=== PATIENT | female | born 1965 | race American Indian/Alaskan Native ===

== ENCOUNTER 2016-06-05 07:34 | Emergency (ER) | payer BC ==
[2016-06-05 07:46] VITALS: BP 140/87
--- NOTE | 2016-06-05 08:14 | Emergency Department Report ---
HPI - General Chief Complaint: Extremity Injury, Lower Time Seen by Provider: 06/05/16 07:54 - HPI HPI: 50-year-old male who presents with left ankle pain 1 day. Patient states she was walking around a corner and yesterday when she twisted her ankle. Patient states she was fine yesterday and went home and her legs started aching this morning. Patient describes pain as throbbing and aching in nature located to the left foot nonradiating, 4-10 intensity. Patient states pain with putting pressure on her foot. History denies fevers chills/nausea/vomiting/abdominal pain/chest pain or any other problems. ED Past Medical Hx - Past Medical History Hx Hypertension: Yes Hx Heart Attack/AMI: No Hx Congestive Heart Failure: No Hx Diabetes: No Hx Deep Vein Thrombosis: No Hx Pulmonary Embolism: No Hx Liver Disease: No Hx Renal Disease: No Hx Sickle Cell Disease: No Hx Arthritis: No Hx Seizures: No Hx Kidney Stones: No Hx Asthma: No Hx COPD: No Hx Tuberculosis: No Hx Dementia: No Hx HIV: No Additional medical history: Negative cardiac catheterization 2013. "ABNORMAL EKG" - Surgical History Hx Coronary Stent: No Hx Open Heart Surgery: No Hx Pacemaker: No Hx Internal Defibrillator: No Hx Cholecystectomy: No Hx Appendectomy: No Hx Breast Surgery: No Additional Surgical History: partial hysterectomy. nasal surgery. tubal ligation. carpul tunnel bilat. tumor left eardrum removed - Social History Smoking Status: Never Smoker - Medications Home Medications: Home Medications Medication Instructions Recorded Confirmed Last Taken Type Isosorbide Mononitrate 30 mg PO AC 06/24/15 06/24/15 06/24/15 History Nitroglycerin [Nitrostat] 0.4 mg SL Q5M PRN 06/24/15 06/24/15 Unknown History amLODIPine [Norvasc] 5 mg PO DAILY 06/24/15 06/24/15 06/24/15 History ALPRAZolam [Xanax TAB] 1 mg PO BID PRN #60 tablet 06/26/15 Unknown Rx ISOSORBIDE MONOnitrate [Imdur ER] 30 mg PO DAILY #30 tablet 06/26/15 Unknown Rx Metoprolol [Lopressor TAB] 25 mg PO BID #30 tablet 06/26/15 Unknown Rx Ranolazine ER [Ranexa ER] 500 mg PO BID #60 tablet 06/26/15 Unknown Rx amLODIPine [Norvasc] 5 mg PO QDAY #30 tablet 06/26/15 Unknown Rx Cyclobenzaprine [Flexeril 10 MG 10 mg PO TID PRN #10 tablet 06/05/16 Unknown Rx TAB] Ibuprofen [Motrin 800 MG tab] 800 mg PO Q8HR PRN #20 tablet 06/05/16 Unknown Rx ED Review of Systems ROS: Stated complaint: LEFT FOOT TWISTED Other details as noted in HPI Constitutional: denies: chills, fever, weakness Eyes: denies: eye pain, eye discharge, vision change ENT: denies: ear pain, throat pain Respiratory: denies: cough, orthopnea, shortness of breath, wheezing Cardiovascular: denies: chest pain, palpitations Endocrine: no symptoms reported. denies: flushing Gastrointestinal: denies: abdominal pain, nausea, vomiting, diarrhea Genitourinary: denies: urgency, dysuria, discharge Musculoskeletal: arthralgia. denies: back pain, joint swelling Skin: denies: rash, lesions Neurological: denies: headache, weakness, numbness, paresthesias, confusion Psychiatric: denies: anxiety, depression Hematological/Lymphatic: denies: easy bleeding, easy bruising Physical Exam - Physical Exam Vital Signs: Vital Signs 06/05/16 07:43 Temperature 98.5 F Pulse Rate 80 Respiratory 16 Rate Blood Pressure 140/87 O2 Sat by Pulse 96 Oximetry Physical Exam: GENERAL: Alert and oriented x3, no apparent distress, Normal Gait, atraumatic. HEAD: Head is normocephalic and a-traumatic. EYES: Extra ocular muscles are intact. Pupils are equal, round, and reactive to light and accommodation. EARS: symetrical, atraumatic NOSE: Nose symetrical, Nontender,Nares appeared normal. MOUTH:Mouth is well hydrated and without lesions. NECK: Supple. Non edematous, No carotid bruits. No lymphadenopathy or thyromegaly. LUNGS: Symetrical with respiration, No wheezing, no rales or crackles, CTAB. HEART: S1, S2 present, regular rate and rhythm without murmur, no rubs, no gallops. ABDOMEN: No organomegaly was noted,Positive bowel sounds, soft, and non- distended. . Nontender to palpation on all Quadrants, NO CVA tenderness. EXTREMITIES/MUSCULOSKELETAL: No cyanosis, clubbing, rash, lesions or edema. Full ROM bilaterally. LE Pulses 2+ bilaterally. LE 5+ strength bilaterally. Left foot and ankle had no joint swelling or edema. Full range of motion without pain. Mild tenderness to palpation lateral aspect of the ankle. NEUROLOGIC: No focal Deficit, Cranial nerves II through XII are grossly intact. No loss of sensation, No facial droop, PSYCHIATRIC: Mood is congruent with affect, denies suicidal or homicidal ideations. SKIN: Warm and dry, No lesions, No ulceration or induration present. ED Course Vital Signs 06/05/16 07:43 Temperature 98.5 F Pulse Rate 80 Respiratory 16 Rate Blood Pressure 140/87 O2 Sat by Pulse 96 Oximetry ED Medical Decision Making - Medical Decision Making 50-year-old female presents with left ankle sprain uncomplicated. ED course: Normal lower extremity exam. Hence for x-ray. Patient has full range of motion of left foot without any pain. Patient able to apply deep pressure. Discussed the patient will follow-up with her primary care physician. Discussed was therapeutic patient. Critical care attestation.: If time is entered above; I have spent that time in minutes in the direct care of this critically ill patient, excluding procedure time. ED Disposition Clinical Impression: Left ankle sprain Qualifiers: Encounter type: initial encounter Disposition: DISCHARGED TO HOME OR SELFCARE Is pt being admited?: No Does the pt Need Aspirin: No Condition: Stable Instructions: Ankle Sprain (ED), Musculoskeletal Pain (ED), RICE Therapy (ED) Prescriptions: Cyclobenzaprine [Flexeril 10 MG TAB] 10 mg PO TID PRN #10 tablet PRN Reason: Muscle Spasm Ibuprofen [Motrin 800 MG tab] 800 mg PO Q8HR PRN #20 tablet PRN Reason: Pain, Moderate (4-6) Referrals: [facility] [Outside] - 3-5 Days [facility] [Outside] - 3-5 Days [facility] [Outside] - 3-5 Days [facility] [Outside] - 3-5 Days Forms: Work/School Release Form(ED) Time of Disposition: 08:15
== END 2016-06-05 08:37 | disposition home or self-care (01) ==
LOC: ED 07:34
DX: S93.402A Sprain of unspecified ligament of left ankle, initial encounter (principal); I10 Essential (primary) hypertension; X58.XXXA Exposure to other specified factors, initial encounter; Y93.9 Activity, unspecified; Y92.9 Unspecified place or not applicable; Y99.9 Unspecified external cause status
CPT/HCPCS: 99283

== ENCOUNTER 2016-10-21 17:33 | Outpatient (CLI) | payer BC ==
--- NOTE | 2016-10-22 08:09 | Magnetic Resonance Report ---
MRI LUMBAR SPINE WITHOUT CONTRAST HISTORY: Lumbar radiculopathy. TECHNIQUE: axial T1, T2. sagittal T1,T2, STIR. COMPARISON: none. FINDINGS: The conus terminates at L1. No signal abnormality or mass. The cauda equina is within normal limits. No central canal stenosis. Normal height and alignment of the lumbar vertebra. Normal bone marrow signal. No acute fracture or suspicious bone lesion. There is mild diffuse facet arthropathy which is most pronounced at L4-5. There is mild disc desiccation L5-S1. The remaining discs are within normal limits. The paraspinal soft tissues are unremarkable. L1-2: No significant abnormality. L2-3: No significant abnormality. L3-4: No significant abnormality. L4-5: No significant abnormality. L5-S1: Mild disc desiccation is again noted. There is a focal midline annular tear and small to medium central disc protrusion. There is mild effacement of the anterior thecal sac but no mass effect on nerve roots or canal stenosis. Bilateral neural foraminal narrowing is estimated at 25%. IMPRESSION: Mild diffuse facet arthropathy. Mild disc desiccation at L5-S1. There is also a focal midline annular tear and small to medium disc protrusion at this level. No central canal stenosis or high-grade neural foraminal narrowing. Please see above.
== END 2016-10-21 17:34 | disposition home or self-care (01) ==
LOC: MRI 17:33
PROVIDERS: ATTEND Psychiatry & Neurology Neurology
DX: M51.17 Intervertebral disc disorders with radiculopathy, lumbosacral region (principal); M12.88 Other specific arthropathies, not elsewhere classified, other specified site; I20.9 Angina pectoris, unspecified; I10 Essential (primary) hypertension
CPT/HCPCS: 72148

== ENCOUNTER → 2017-07-01 | Outpatient (CLI) | payer BC | LOC: SLR 11:00 | PROVIDERS: ATTEND Internal Medicine | DX: G47.30 Sleep apnea, unspecified (principal); E66.9 Obesity, unspecified; R40.0 Somnolence | CPT/HCPCS: 95810 ==

== ENCOUNTER → 2017-09-03 | Outpatient (CLI) | payer BC | LOC: SLR 11:00 | PROVIDERS: ATTEND Internal Medicine | DX: G47.33 Obstructive sleep apnea (adult) (pediatric) (principal); R40.0 Somnolence | CPT/HCPCS: 95811 ==

== ENCOUNTER 2018-06-26 13:10 | Emergency (ER) | payer BC ==
--- NOTE | 2018-06-26 13:15 | Emergency Department Report ---
Chief Complaint: Dizziness Stated Complaint: D/N HEADACHE/DIARRHEA Time Seen by Provider: 06/26/18 13:13 - HPI History of Present Illness: weak and dizzy since Friday new DM diarrhea rx lopressor norvasc menopausal partial hysterectomy. no cp no sob MSE completed MSE screening note: Focused history and physical exam performed. Due to findings the following was ordered: ED Disposition for MSE Condition: Stable
[2018-06-26 13:53] LABS: Hematocrit 36.6 % (30.3-42.9); Hemoglobin 12.2 gm/dl (10.1-14.3); Mean Corpuscular HGB Conc 33 % (30-34); Mean Corpuscular Volume 86 fl (79-97); Platelet Count 358 K/mm3 (140-440); Red Blood Count 4.27 M/mm3 (3.65-5.03); Red Cell Distribution Width 14.9 % (13.2-15.2)
[2018-06-26 14:11] LABS: Bilirubin,Urine NEG (Negative); Blood,Urine NEG (Negative); Color,Urine Yellow (Yellow); Mucus,Urine FEW /HPF; Protein,Urine <15 mg/dL mg/dL (Negative); Urobilinogen,Urine < 2.0 mg/dL (<2.0)
[2018-06-26 14:21] LABS: Alanine Aminotransferase 10 units/L (7-56); Albumin 4.2 g/dL (3.9-5); BUN/Creatinine Ratio 12; Blood Urea Nitrogen 7 mg/dL (7-17); Calcium 9.3 mg/dL (8.4-10.2); Hemolysis Index 3
[2018-06-26] MEDS ORDERED: ZOFRAN IV ONE (16:26)
[2018-06-26] MEDS ORDERED: NACL 0.9% 1000 ML 1,000 ML IV ONE (16:26)
--- NOTE | 2018-06-26 16:53 | Emergency Department Report ---
ED Dizziness HPI - General Chief Complaint: Dizziness Stated Complaint: D/N HEADACHE/DIARRHEA Time Seen by Provider: 06/26/18 13:13 Source: patient, family Mode of arrival: Ambulatory Limitations: No Limitations - History of Present Illness Initial Comments: This is a 52-year-old female here report that she has dizziness and weakness since last Friday. She says she has been having some upper respiratory symptoms to include cough, runny nose, frontal headache and postnasal drainage and cough is worse at night when she lays down. She reports some nausea without vomiting. Patient reports that she also has IBS and she has been having some diarrhea on and off. Denies any urinary burning but reports frequency and she is a new diabetic since April. Her blood glucose was normal on her labs. Pain is sharp to chest and located to the mid chest which shortness of breath on and off. Patient has been in here in the past for chest pain and shortness of breath and has been admitted. She had stress test and cardiac workup in April 2018 and she says that they just told her that her heart was fast asleep her metoprolol her heart rate is now at 53 and she triaged. She said her heart rate usually runs in the 60s. Patient also said that she had cardiac catheterization sedation 2 years ago and that was normal for similar symptoms. She says she had echocardiogram in April 2018 and that was also normal and this was done at this hospital. Denies any fever or chills. Denies any vaginal bleeding or discharge. Denies any back pain report that she had some abdominal cramping. Throughout the week but none at present. MD Complaint: lightheadedness, other (upper respiratory symptoms) Onset/Timin -: days(s) Timing: intermittent Description: lightheadedness History of Same: Yes History of Trauma: No Severity: moderate Improves With: nothing Worsens With: nothing Associated Symptoms: chest pain (7/10 and intermittent), cough, shortness of breath, weakness, other (intermittent diarrhea.). denies: ataxia, confusion, diaphoresis, fever/chills, loss of appetite, malaise, rash, seizure, syncope - Related Data Previous Rx's Medication Instructions Recorded Last Taken Type amLODIPine [Norvasc] 5 mg PO QDAY #30 tablet 06/26/15 Unknown Rx Azithromycin [Zithromax Z-PHUC] 250 mg PO DAILY 5 Days #1 pkg 06/26/18 Unknown Rx Cetirizine HCl [ZyrTEC] 10 mg PO QAM 14 Days #14 capsule 06/26/18 Unknown Rx Fluticasone [Flonase] 1 spray NS QDAY 14 Days #1 bottle 06/26/18 Unknown Rx Promethazine [Phenergan TAB] 25 mg PO Q6HR PRN #16 tab 06/26/18 Unknown Rx methylPREDNISolone [Medrol Dose 4 mg PO DAILY #1 tab.ds.pk 06/26/18 Unknown Rx Phuc] Allergies Allergy/AdvReac Type Severity Reaction Status Date / Time codeine Allergy Swelling Verified 06/26/18 13:12 iodine Allergy Swelling Verified 06/26/18 13:12 lisinopril Allergy Angioedema Verified 06/26/18 13:12 Sulfa (Sulfonamide Allergy Swelling Verified 06/26/18 13:12 Antibiotics) ED Review of Systems ROS: Stated complaint: D/N HEADACHE/DIARRHEA Other details as noted in HPI Constitutional: weakness. denies: chills, fever ENT: denies: ear pain, throat pain, congestion (fentanyl) Respiratory: cough (exam her), shortness of breath. denies: SOB with exertion, SOB at rest, stridor, wheezing Cardiovascular: chest pain. denies: palpitations, dyspnea on exertion (followed), edema, syncope Gastrointestinal: nausea, diarrhea. denies: abdominal pain, vomiting, constipation, hematemesis, melena, hematochezia Genitourinary: frequency. denies: dysuria, hematuria Musculoskeletal: denies: back pain, joint swelling, arthralgia, myalgia Skin: denies: rash Neurological: headache, other (lightheadedness). denies: weakness, numbness, paresthesias, confusion, abnormal gait, vertigo ED Past Medical Hx - Past Medical History Previous Medical History?: Yes Hx Hypertension: Yes Hx Heart Attack/AMI: No Hx Congestive Heart Failure: No Hx Diabetes: No Hx Deep Vein Thrombosis: No Hx Pulmonary Embolism: No Hx GERD: Yes Hx Liver Disease: No Hx Renal Disease: No Hx Sickle Cell Disease: No Hx Arthritis: No Hx Seizures: No Hx Kidney Stones: No Hx Asthma: No Hx COPD: No Hx Tuberculosis: No Hx Dementia: No Hx HIV: No Additional medical history: Negative cardiac catheterization 2013. "ABNORMAL EKG". sleep apnea - Surgical History Past Surgical History?: Yes Hx Coronary Stent: No Hx Open Heart Surgery: No Hx Pacemaker: No Hx Internal Defibrillator: No Hx Cholecystectomy: No Hx Appendectomy: No Hx Breast Surgery: No Additional Surgical History: partial hysterectomy. nasal surgery. tubal ligation. carpul tunnel bilat. tumor left eardrum removed - Family History Family history: hypertension - Social History Smoking Status: Never Smoker Substance Use Type: None - Medications Home Medications: Home Medications Medication Instructions Recorded Confirmed Last Taken Type amLODIPine [Norvasc] 5 mg PO QDAY #30 tablet 06/26/15 12/18/16 Unknown Rx Azithromycin [Zithromax Z-PHUC] 250 mg PO DAILY 5 Days #1 pkg 06/26/18 Unknown Rx Cetirizine HCl [ZyrTEC] 10 mg PO QAM 14 Days #14 capsule 06/26/18 Unknown Rx Fluticasone [Flonase] 1 spray NS QDAY 14 Days #1 bottle 06/26/18 Unknown Rx Promethazine [Phenergan TAB] 25 mg PO Q6HR PRN #16 tab 06/26/18 Unknown Rx methylPREDNISolone [Medrol Dose 4 mg PO DAILY #1 tab.ds.pk 06/26/18 Unknown Rx Phuc] ED Physical Exam - General Limitations: No Limitations General appearance: alert, in no apparent distress - Head Head exam: Present: atraumatic, normocephalic, normal inspection, other (normal exam) - Eye Eye exam: Present: normal appearance, PERRL, EOMI. Absent: nystagmus Pupils: Present: normal accommodation - ENT ENT exam: Present: normal orophraynx, mucous membranes moist, normal external ear exam, other (bilateral nasal mucosa congested, erythema and clear drainage.). Absent: TM's normal bilaterally (bilateral team congested without erythema) - Neck Neck exam: Present: normal inspection, full ROM, other (no C-spine tenderness). Absent: tenderness, meningismus, lymphadenopathy - Respiratory Respiratory exam: Present: normal lung sounds bilaterally. Absent: respiratory distress, wheezes, rales, rhonchi, stridor, chest wall tenderness, accessory muscle use, decreased breath sounds, prolonged expiratory - Cardiovascular Cardiovascular Exam: Present: normal rhythm, bradycardia, normal heart sounds. Absent: systolic murmur, diastolic murmur - GI/Abdominal GI/Abdominal exam: Present: soft, normal bowel sounds. Absent: distended, tenderness, guarding, rebound, rigid - Extremities Exam Extremities exam: Present: normal inspection, full ROM, normal capillary refill, other (No cce. + 2 pulses in all extremities, no neurovascular compromise). Absent: tenderness, pedal edema, joint swelling, calf tenderness - Back Exam Back exam: Present: normal inspection, full ROM, other (ablated without any difficulties). Absent: tenderness, CVA tenderness (R), CVA tenderness (L), muscle spasm, paraspinal tenderness, vertebral tenderness, rash noted - Neurological Exam Neurological exam: Present: alert, oriented X3, normal gait, reflexes normal, other (no focal deficits). Absent: motor sensory deficit - Psychiatric Psychiatric exam: Present: normal affect, normal mood - Skin Skin exam: Present: warm, dry, intact, normal color. Absent: rash ED Course Vital Signs 06/26/18 06/26/18 13:13 18:20 Temperature 97.6 F Pulse Rate 60 73 Respiratory 20 15 Rate Blood Pressure 146/84 150/88 O2 Sat by Pulse 100 97 Oximetry Guillermina get in to see ready here this emigdio wonderful. - Reevaluation(s) Reevaluation #1: 06/26/18 18:00 Patient given IV fluid normal saline 1 L and Zofran 8 mg IV that she is feeling a lot better. No nausea or headache at present. Reevaluation #2: 06/26/18 18:34 Patient is currently stable and in no acute distress. Plan to send patient home with family ED Medical Decision Making - Lab Data Result diagrams: 06/26/18 13:43 06/26/18 13:43 Lab Results 06/26/18 06/26/18 06/26/18 Range/Units 13:43 13:43 13:43 WBC 11.6 H (4.5-11.0) K/mm3 RBC 4.27 (3.65-5.03) M/mm3 Hgb 12.2 (10.1-14.3) gm/dl Hct 36.6 (30.3-42.9) % MCV 86 (79-97) fl MCH 29 (28-32) pg MCHC 33 (30-34) % RDW 14.9 (13.2-15.2) % Plt Count 358 (140-440) K/mm3 VBG pH 7.333 (7.320-7.420) Sodium 140 (137-145) mmol/L Potassium 3.6 (3.6-5.0) mmol/L Chloride 103.2 (98-107) mmol/L Carbon Dioxide 25 (22-30) mmol/L Anion Gap 15 mmol/L BUN 7 (7-17) mg/dL Creatinine 0.6 L (0.7-1.2) mg/dL Estimated GFR > 60 ml/min BUN/Creatinine Ratio 12 % Glucose 92 (65-100) mg/dL Calcium 9.3 (8.4-10.2) mg/dL Total Bilirubin 0.30 (0.1-1.2) mg/dL AST 11 (5-40) units/L ALT 10 (7-56) units/L Alkaline Phosphatase 67 (35-129) units/L Troponin T (0.00-0.029) ng/mL Total Protein 7.0 (6.3-8.2) g/dL Albumin 4.2 (3.9-5) g/dL Albumin/Globulin Ratio 1.5 % Lipase 76 H (13-60) units/L Urine Color (Yellow) Urine Turbidity (Clear) Urine pH (5.0-7.0) Ur Specific Enders (1.003-1.030) Urine Protein (Negative) mg/dL Urine Glucose (UA) (Negative) mg/dL Urine Ketones (Negative) mg/dL Urine Blood (Negative) Urine Nitrite (Negative) Urine Bilirubin (Negative) Urine Urobilinogen (<2.0) mg/dL Ur Leukocyte Esterase (Negative) Urine WBC (Auto) (0.0-6.0) /HPF Urine RBC (Auto) (0.0-6.0) /HPF U Epithel Cells (Auto) (0-13.0) /HPF Urine Mucus /HPF 06/26/18 06/26/18 Range/Units 13:43 13:52 WBC (4.5-11.0) K/mm3 RBC (3.65-5.03) M/mm3 Hgb (10.1-14.3) gm/dl Hct (30.3-42.9) % MCV (79-97) fl MCH (28-32) pg MCHC (30-34) % RDW (13.2-15.2) % Plt Count (140-440) K/mm3 VBG pH (7.320-7.420) Sodium (137-145) mmol/L Potassium (3.6-5.0) mmol/L Chloride (98-107) mmol/L Carbon Dioxide (22-30) mmol/L Anion Gap mmol/L BUN (7-17) mg/dL Creatinine (0.7-1.2) mg/dL Estimated GFR ml/min BUN/Creatinine Ratio % Glucose (65-100) mg/dL Calcium (8.4-10.2) mg/dL Total Bilirubin (0.1-1.2) mg/dL AST (5-40) units/L ALT (7-56) units/L Alkaline Phosphatase (35-129) units/L Troponin T < 0.010 (0.00-0.029) ng/mL Total Protein (6.3-8.2) g/dL Albumin (3.9-5) g/dL Albumin/Globulin Ratio % Lipase (13-60) units/L Urine Color Yellow (Yellow) Urine Turbidity Clear (Clear) Urine pH 5.0 (5.0-7.0) Ur Specific Enders 1.010 (1.003-1.030) Urine Protein <15 mg/dl (Negative) mg/dL Urine Glucose (UA) Neg (Negative) mg/dL Urine Ketones Neg (Negative) mg/dL Urine Blood Neg (Negative) Urine Nitrite Neg (Negative) Urine Bilirubin Neg (Negative) Urine Urobilinogen < 2.0 (<2.0) mg/dL Ur Leukocyte Esterase Neg (Negative) Urine WBC (Auto) 1.0 (0.0-6.0) /HPF Urine RBC (Auto) 1.0 (0.0-6.0) /HPF U Epithel Cells (Auto) < 1.0 (0-13.0) /HPF Urine Mucus Few /HPF - EKG Data -: EKG Interpreted by Me (attending physician) Rate: bradycardia - EKG Data When compared to previous EKG there are: previous EKG unavailable Interpretation: no acute changes - Radiology Data Radiology results: report reviewed Two-view chest x-ray dictated by radiologist and report reviewed by myself and no evidence of acute cardiopulmonary processes. Please refer to report below Findings [facility] [address] [place] [address] XRay Report Signed Patient: DIEGO MOORE MR#: [id number] : 1965 Acct:[id number] Age/Sex: 52 / F ADM Date: 06/26/18 Loc: ED Attending Dr: Ordering Physician: JUAN SIDDIQUI Date of Service: 06/26/18 Procedure(s): XR chest routine 2V Accession Number(s): [id number] cc: JUAN SIDDIQUI Fluoro Time In Minutes: FINAL REPORT EXAM: XR CHEST ROUTINE 2V HISTORY: cough, fever 1 month TECHNIQUE: PA and lateral views of the chest Comparison: Chest x-ray dated June 24, 2015 FINDINGS: There is no evidence of infiltrate, pneumothorax or pleural fluid collection. The cardiomediastinal silhouette is normal in appearance. The bony structures are unremarkable. IMPRESSION: 1. No evidence of an acute pulmonary process. If further imaging is required, CT chest may be helpful. Transcribed By: ED Dictated By: JESSICA ARCEO MD Electronically Authenticated By: JESSICA ARCEO MD Signed Date/Time: 06/26/181729 DD/ 27 TD/TT: 06/26/181727 - Medical Decision Making 52-year-old patient here with lightheadedness and weakness and also upper respiratory symptoms. Patient was found to have sinusitis and she was given 1 L of normal saline along with Zofran 8 mg IV and is currently feeling better. Discharged home in stable condition with her family to follow up with primary care physician. Vital signs are stable she is afebrile and in no acute distress - Differential Diagnosis ACS, PNA, pleurisy, bronchitis, sinusitis, rhinitis Critical care attestation.: If time is entered above; I have spent that time in minutes in the direct care of this critically ill patient, excluding procedure time. ED Disposition Clinical Impression: Atypical chest pain, URI with cough and congestion, Episodic lightheadedness Sinusitis Qualifiers: Sinusitis location: unspecified location Chronicity: acute Recurrence: not specified as recurrent Qualified Code(s): J01.90 - Acute sinusitis, unspecified Disposition: - TO HOME OR SELFCARE Is pt being admited?: No Does the pt Need Aspirin: No Condition: Stable Instructions: Chest Pain (ED), Sinusitis (ED), Acute Nausea and Vomiting (ED), Lightheadedness (ED), Acute Cough (ED) Additional Instructions: Please take antibiotic as prescribed Follow-up with primary care physician in 3-5 days Take Zyrtec, Flonase and Medrol Dosepak to help to relieve congestion. Take Phenergan for nausea e but please give her operating machine or taking this medication as a causes drowsiness Take Motrin as prescribed for pain but take with food as this can cause irritation to stomach lining If your condition worsens to include difficulty breathing, swallowing, chest pain, nausea and vomiting and fever does not relief with Motrin please return to the emergency room MEGAN. Gargle with warm salt water and this will help to relieve sore throat Please increase her fluid intake to 2-3 L of water daily Flushing nostrils out with nasal saline and this will help to relieve congestion. Prescriptions: Azithromycin [Zithromax Z-PHUC] 250 mg PO DAILY 5 Days #1 pkg Cetirizine HCl [ZyrTEC] 10 mg PO QAM 14 Days #14 capsule Fluticasone [Flonase] 1 spray NS QDAY 14 Days #1 bottle methylPREDNISolone [Medrol Dose Phuc] 4 mg PO DAILY #1 tab.ds.pk Promethazine [Phenergan TAB] 25 mg PO Q6HR PRN #16 tab PRN Reason: Nausea Referrals: Your, primary care doctor [Other] - 06/30/18 [facility] [Provider Group] - 3-5 Days DEB HDALEY MD [Staff Physician] - 06/30/18 (Is the first time that Heidi Paula) Forms: Work/School Release Form(ED)
--- NOTE | 2018-06-26 17:30 | XRay Report ---
FINAL REPORT EXAM: XR CHEST ROUTINE 2V HISTORY: cough, fever 1 month TECHNIQUE: PA and lateral views of the chest Comparison: Chest x-ray dated June 24, 2015 FINDINGS: There is no evidence of infiltrate, pneumothorax or pleural fluid collection. The cardiomediastinal silhouette is normal in appearance. The bony structures are unremarkable. IMPRESSION: 1. No evidence of an acute pulmonary process. If further imaging is required, CT chest may be helpful.
[2018-06-26 18:25] VITALS: BP 150/88
== END 2018-06-26 19:13 | disposition home or self-care (01) ==
LOC: ED 13:10
DX: J01.90 Acute sinusitis, unspecified (principal); J06.9 Acute upper respiratory infection, unspecified; I10 Essential (primary) hypertension; K21.9 Gastro-esophageal reflux disease without esophagitis
CPT/HCPCS: 36415; 71046; 80053; 81001; 82805; 83690; 84484; 85027; 93005; 93010; 96361; 96374; 99284; J2405; J7030

== ENCOUNTER 2018-07-08 08:19 | Outpatient (CLI) | payer BC ==
[2018-07-08 08:31] LABS: Hematocrit 39.3 % (30.3-42.9); Hemoglobin 13.2 gm/dl (10.1-14.3); Mean Corpuscular HGB Conc 34 % (30-34); Mean Corpuscular Volume 86 fl (79-97); Platelet Count 290 K/mm3 (140-440); Red Blood Count 4.56 M/mm3 (3.65-5.03); Red Cell Distribution Width 15.9 % (13.2-15.2)
== END 2018-07-08 08:20 | disposition home or self-care (01) ==
LOC: LAB 08:19
PROVIDERS: ATTEND Plastic Surgery
DX: Z01.818 Encounter for other preprocedural examination (principal); I10 Essential (primary) hypertension; E66.9 Obesity, unspecified; K21.9 Gastro-esophageal reflux disease without esophagitis; Z90.710 Acquired absence of both cervix and uterus
CPT/HCPCS: 36415; 83036; 85027

== ENCOUNTER 2018-07-11 07:51 | Inpatient (IN) | payer BC ==
[2018-07-11] MEDS ORDERED: DUONEB *Not for PRN Use IH ONE ×2 (08:13→08:52)
[2018-07-11] MEDS ORDERED: MAGNESIUM SULFATE 2GM/50ML 2 GM/50 ML BAG IV ONE (08:52)
[2018-07-11] MEDS ORDERED: LEVAQUIN 750MG/150ML 750 MG/150 ML BAG IV ONE (08:56)
[2018-07-11 09:35] LABS: Basophils % (Auto) 0.3 % (0.0-1.8); Eosinophils # (Auto) 0.1 K/mm3 (0.0-0.4); Eosinophils % (Auto) 0.7 % (0.0-4.3); Hematocrit 36.2 % (30.3-42.9); Hemoglobin 12.3 gm/dl (10.1-14.3); Lymphocytes # (Auto) 2.8 K/mm3 (1.2-5.4); Lymphocytes % (Auto) 35.4 % (13.4-35.0); Mean Corpuscular HGB Conc 34 % (30-34); Mean Corpuscular Volume 85 fl (79-97); Monocytes % (Auto) 12.9 % (0.0-7.3); Platelet Count 242 K/mm3 (140-440); Red Blood Count 4.28 M/mm3 (3.65-5.03); Red Cell Distribution Width 15.5 % (13.2-15.2)
[2018-07-11 09:58] LABS: INR 1.12 (0.87-1.13)
[2018-07-11 09:59] LABS: Partial Thromboplastin Time 38.2 Sec. (24.2-36.6)
[2018-07-11] MEDS ORDERED: BENADRYL IV ONE (10:38)
[2018-07-11 10:48] LABS: Albumin 3.6 g/dL (3.9-5); BUN/Creatinine Ratio 10; Blood Urea Nitrogen 5 mg/dL (7-17); Calcium 8.6 mg/dL (8.4-10.2); Hemolysis Index 174
[2018-07-11 10:58] LABS: Alanine Aminotransferase 24 units/L (7-56); Bilirubin,Direct < 0.2 mg/dL (0-0.2)
--- NOTE | 2018-07-11 11:39 | XRay Report ---
PROCEDURE: XR CHEST 1V AP TECHNIQUE: Chest radiograph single view. HISTORY: chest congestion COMPARISONS: 06/26/2018 . FINDINGS: Heart: Normal. Mediastinum/Vessels: Normal. Lungs/Pleural space: Subtle streaky and hazy opacities in the left lung base. No pleural effusion or pneumothorax. Bony thorax: No acute osseous abnormality. Life support devices: None. IMPRESSION: Subtle streaky and hazy opacities in the left lung base that may reflect atelectasis or infiltrate. This document is electronically signed by Mayela Huerta MD., July 11 2018 09:44:48 AM ET
[2018-07-11] MEDS ORDERED: ZOSYN/NS 4.5GM/100ML 4.5 GM/100 ML VIAL IV ONE (11:49)
[2018-07-11] MEDS ORDERED: NACL 0.9% 1000 ML 1,000 ML IV ONE (11:50)
[2018-07-11] MEDS ORDERED: ZITHROMAX 500 MG in NACL 0.9% 250ML 250 ML IV ONE (12:00)
--- NOTE | 2018-07-11 12:14 | Emergency Department Report ---
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 She states that she's had problems for about a week with a nonproductive cough. She has not measured her temperature. She states she has no prior history of asthma. She does have a history of hypertension and diabetes. She has no prior history of pneumonia or asthma. She has never used bronchodilators in the past. She does not complain of chest pain, hemoptysis, leg pain or swelling. She has had no recent travel. -: Gradual, week(s) - Related Data Previous Rx's Medication Instructions Recorded Last Taken Type amLODIPine [Norvasc] 5 mg PO QDAY #30 tablet 06/26/15 Unknown Rx Azithromycin [Zithromax Z-RAYMON] 250 mg PO DAILY 5 Days #1 pkg 06/26/18 Unknown Rx Cetirizine HCl [ZyrTEC] 10 mg PO QAM 14 Days #14 capsule 06/26/18 Unknown Rx Fluticasone [Flonase] 1 spray NS QDAY 14 Days #1 bottle 06/26/18 Unknown Rx Promethazine [Phenergan TAB] 25 mg PO Q6HR PRN #16 tab 06/26/18 Unknown Rx methylPREDNISolone [Medrol Dose 4 mg PO DAILY #1 tab.ds.pk 06/26/18 Unknown Rx Raymon] Allergies Allergy/AdvReac Type Severity Reaction Status Date / Time codeine Allergy Swelling Verified 07/11/18 07:54 iodine Allergy Swelling Verified 07/11/18 07:54 lisinopril Allergy Angioedema Verified 07/11/18 07:54 Sulfa (Sulfonamide Allergy Swelling Verified 07/11/18 07:54 Antibiotics) ED Review of Systems ROS: Stated complaint: COUGH/HEADACHE Other details as noted in HPI Constitutional: denies: chills, fever Eyes: denies: eye pain, eye discharge, vision change ENT: denies: ear pain, throat pain Respiratory: cough, shortness of breath, wheezing Cardiovascular: denies: chest pain, palpitations Endocrine: no symptoms reported Gastrointestinal: denies: abdominal pain, nausea, diarrhea Genitourinary: denies: urgency, dysuria, discharge Musculoskeletal: denies: back pain, joint swelling, arthralgia Skin: denies: rash, lesions Neurological: denies: headache, weakness, paresthesias Psychiatric: denies: anxiety, depression Hematological/Lymphatic: denies: easy bleeding, easy bruising ED Past Medical Hx - Past Medical History Hx Hypertension: Yes Hx Heart Attack/AMI: No Hx Congestive Heart Failure: No Hx Diabetes: No Hx Deep Vein Thrombosis: No Hx Pulmonary Embolism: No Hx GERD: Yes Hx Liver Disease: No Hx Renal Disease: No Hx Sickle Cell Disease: No Hx Arthritis: No Hx Seizures: No Hx Kidney Stones: No Hx Asthma: No Hx COPD: No Hx Tuberculosis: No Hx Dementia: No Hx HIV: No Additional medical history: Negative cardiac catheterization 2014. "ABNORMAL EKG". sleep apnea - Surgical History Hx Coronary Stent: No Hx Open Heart Surgery: No Hx Pacemaker: No Hx Internal Defibrillator: No Hx Cholecystectomy: No Hx Appendectomy: No Hx Breast Surgery: No Additional Surgical History: partial hysterectomy. nasal surgery. tubal ligation. carpul tunnel bilat. tumor left eardrum removed - Social History Smoking Status: Never Smoker Substance Use Type: None - Medications Home Medications: Home Medications Medication Instructions Recorded Confirmed Last Taken Type amLODIPine [Norvasc] 5 mg PO QDAY #30 tablet 06/26/15 12/18/16 Unknown Rx Azithromycin [Zithromax Z-RAYMON] 250 mg PO DAILY 5 Days #1 pkg 06/26/18 Unknown Rx Cetirizine HCl [ZyrTEC] 10 mg PO QAM 14 Days #14 capsule 06/26/18 Unknown Rx Fluticasone [Flonase] 1 spray NS QDAY 14 Days #1 bottle 06/26/18 Unknown Rx Promethazine [Phenergan TAB] 25 mg PO Q6HR PRN #16 tab 06/26/18 Unknown Rx methylPREDNISolone [Medrol Dose 4 mg PO DAILY #1 tab.ds.pk 06/26/18 Unknown Rx Raymon] ED Physical Exam - General Limitations: No Limitations General appearance: alert, in no apparent distress - Head Head exam: Present: atraumatic, normocephalic - Eye Eye exam: Present: normal appearance. Absent: scleral icterus - ENT ENT exam: Present: mucous membranes moist - Neck Neck exam: Present: normal inspection. Absent: tenderness, meningismus - Respiratory Respiratory exam: Present: wheezes, rhonchi (bilateral). Absent: respiratory distress - Cardiovascular Cardiovascular Exam: Present: regular rate, normal rhythm. Absent: systolic murmur, diastolic murmur, rubs, gallop - GI/Abdominal GI/Abdominal exam: Present: soft, normal bowel sounds. Absent: distended, tenderness, guarding, rebound, rigid - Extremities Exam Extremities exam: Present: normal inspection, normal capillary refill. Absent: pedal edema, joint swelling, calf tenderness - Back Exam Back exam: Present: normal inspection - Neurological Exam Neurological exam: Present: alert, oriented X3, CN II-XII intact. Absent: motor sensory deficit - Psychiatric Psychiatric exam: Present: normal affect, normal mood - Skin Skin exam: Present: warm, dry, intact, normal color. Absent: rash ED Course Vital Signs 07/11/18 07/11/18 07/11/18 07:55 08:58 09:14 Temperature 98.1 F Pulse Rate 78 Pulse Rate [ 70 78 Posterior Bilateral Throughout] Respiratory 20 Rate Respiratory 24 22 Rate [Posterior Bilateral Throughout] Blood Pressure 159/103 Blood Pressure [Left] O2 Sat by Pulse 97 Oximetry 07/11/18 10:57 Temperature Pulse Rate 74 Pulse Rate [ Posterior Bilateral Throughout] Respiratory 16 Rate Respiratory Rate [Posterior Bilateral Throughout] Blood Pressure Blood Pressure 147/89 [Left] O2 Sat by Pulse 96 Oximetry - Reevaluation(s) Reevaluation #1: She did have progressive improvement with DuoNeb's. She was given magnesium sulfate. I did hesitate on giving her steroids because she is diabetic. She has recently been prescribed apparently a Medrol Dosepak. This is not changed her course. Believe the patient has a left lower lobe infiltrate consistent with pneumonia. She appeared to have a reaction to Levaquin per the nursing staff. She was given Zosyn and azithromycin was continued. She is admitted by Dr. Cardenas further care and evaluation. She is noted to have an increased anion gap. However her lactic acid was normal and her glucose was 110. I believe her BMP can just be repeated after fluids the hospitalist at this point. She does not apparently have DKA or thick acidosis. 07/11/18 12:16 ED Medical Decision Making - Lab Data Result diagrams: 07/11/18 09:10 07/11/18 09:10 Laboratory Results - last 24 hr 07/11/18 07/11/18 07/11/18 09:10 09:10 09:10 WBC 7.8 RBC 4.28 Hgb 12.3 Hct 36.2 MCV 85 MCH 29 MCHC 34 RDW 15.5 H Plt Count 242 Lymph % (Auto) 35.4 H [place] % (Auto) 12.9 H Eos % (Auto) 0.7 Baso % (Auto) 0.3 Lymph # 2.8 [place] # 1.0 H Eos # 0.1 Baso # 0.0 Seg Neutrophils % 50.7 Seg Neutrophils # 4.0 PT 15.1 H INR 1.12 APTT 38.2 H Sodium 138 Potassium 4.2 Chloride 104.1 Carbon Dioxide 16 L Anion Gap 22 BUN 5 L Creatinine 0.5 L Estimated GFR > 60 BUN/Creatinine Ratio 10 Glucose 110 H Lactic Acid Calcium 8.6 Magnesium 2.00 Total Bilirubin 0.50 Direct Bilirubin < 0.2 Indirect Bilirubin 0.3 AST 35 ALT 24 Alkaline Phosphatase 63 Troponin T < 0.010 NT-Pro-B Natriuret Pep 30.95 Total Protein 7.0 Albumin 3.6 L Albumin/Globulin Ratio 1.1 07/11/18 11:17 WBC RBC Hgb Hct MCV MCH MCHC RDW Plt Count Lymph % (Auto) [place] % (Auto) Eos % (Auto) Baso % (Auto) Lymph # [place] # Eos # Baso # Seg Neutrophils % Seg Neutrophils # PT INR APTT Sodium Potassium Chloride Carbon Dioxide Anion Gap BUN Creatinine Estimated GFR BUN/Creatinine Ratio Glucose Lactic Acid 1.00 Calcium Magnesium Total Bilirubin Direct Bilirubin Indirect Bilirubin AST ALT Alkaline Phosphatase Troponin T NT-Pro-B Natriuret Pep Total Protein Albumin Albumin/Globulin Ratio - EKG Data -: EKG Interpreted by Me EKG shows normal: sinus rhythm, axis, intervals, QRS complexes, ST-T waves - EKG Data Interpretation: nonspecific ST-T wave ammy - Radiology Data interpreted by me: Left lower lobe infiltrate Critical care attestation.: If time is entered above; I have spent that time in minutes in the direct care of this critically ill patient, excluding procedure time. ED Disposition Clinical Impression: Increased anion gap metabolic acidosis Pneumonia Qualifiers: Pneumonia type: due to unspecified organism Laterality: left Lung location: lower lobe of lung Qualified Code(s): J18.1 - Lobar pneumonia, unspecified organism Reactive airway disease Qualifiers: Asthma severity: moderate Asthma persistence: persistent Asthma complication type: with status asthmaticus Qualified Code(s): J45.42 - Moderate persistent asthma with status asthmaticus Disposition: 09 OP ADMIT IP TO THIS HOSP Is pt being admited?: Yes Does the pt Need Aspirin: Yes Condition: Stable Instructions: Bacterial Pneumonia (ED) Referrals: PRIMARY CARE, [Primary Care Provider] - 3-5 Days Time of Disposition: 12:20
[2018-07-11] MEDS ORDERED: BABY ASPIRIN PO ONE (12:21)
[2018-07-11] MEDS ORDERED: SODIUM CHLORIDE FLUSH SYRINGE 10 ML IV PRN (15:37)
[2018-07-11] MEDS ORDERED: TYLENOL PO PRN (15:37)
[2018-07-11] MEDS ORDERED: DILAUDID IV PRN (15:38)
[2018-07-11] MEDS ORDERED: NON-FORMULARY (Metoprolol 50 MG) PO SCH (15:45)
[2018-07-11] MEDS ORDERED: JANUMET PO SCH (15:45)
[2018-07-11] MEDS ORDERED: NON-FORMULARY (Omeprazole 40 MG) PO SCH (15:45)
[2018-07-11] MEDS ORDERED: ZITHROMAX 500 MG in NACL 0.9% 250ML 250 ML IV SCH (16:00)
[2018-07-11] MEDS ORDERED: NACL 0.9% 1000 ML 1,000 ML IV SCH (16:00)
[2018-07-11] MEDS ORDERED: LEVAQUIN 750MG/150ML 750 MG/150 ML BAG IV SCH (16:00)
[2018-07-11] MEDS ORDERED: PROVENTIL IH PRN ×2 (16:45→23:59)
[2018-07-11] MEDS: HumaLOG SUB-Q SCH (17:14)
[2018-07-11] MEDS: ZOFRAN IV PRN (19:04)
[2018-07-11] MEDS: ROCEPHIN/NS 2 GM/100 ML 2 GM/100 ML BAG IV SCH (19:05)
[2018-07-11] MEDS: SODIUM CHLORIDE FLUSH SYRINGE 10 ML IV SCH (19:09)
[2018-07-11] MEDS: PROTONIX PO SCH (19:31)
[2018-07-11] MEDS: TOPROL XL PO SCH (19:31)
[2018-07-11] MEDS: BROVANA NEBU IH SCH (20:31)
[2018-07-11] MEDS: PULMICORT IH SCH (20:31)
--- NOTE | 2018-07-11 23:58 | History and Physical Report ---
History of Present Illness Date of examination: 07/11/18 Date of admission: 07/11/18 12:21 Chief complaint: Cough and wheezung for 1 week LGF off and on 1 week History of present illness: 52-year-old female, with pmh of HTN and allergic rhinitis presents with difficu lty in breathing. She has been having wheezing and cough productive of mucoid to yellow sputum for one week. Was treated with Z pack and medrol dose pack as out patient with no significant improvement.No prior history of asthma. She does have a history of hypertension. She has no prior history of pneumonia or asthma. She has never used bronchodilators in the past. No chest pain, hemoptysis, leg pain or swelling. She has had no recent travel. Past Medical History Hypertension: Yes Additional medical history: Negative cardiac catheterization 2013. "ABNORMAL EKG". sleep apnea Surgical History Additional Surgical History: Partial Hysterectomy. nasal surgery. tubal ligation. carpul tunnel bilat. tumor left eardrum removed Social History Smoking Status: Never Smoker Substance Use Type: None Family History Htn Medications Home Medications: Home Medications Medication Instructions Recorded Confirmed Last Taken Type amLODIPine [Norvasc] 5 mg PO QDAY #30 tablet 06/26/15 12/18/16 Unknown Rx Azithromycin [Zithromax Z-RAYMON] 250 mg PO DAILY 5 Days #1 pkg 06/26/18 Unknown Rx Cetirizine HCl [ZyrTEC] 10 mg PO QAM 14 Days #14 capsule 06/26/18 Unknown Rx Fluticasone [Flonase] 1 spray NS QDAY 14 Days #1 bottle 06/26/18 Unknown Rx Promethazine [Phenergan TAB] 25 mg PO Q6HR PRN #16 tab 06/26/18 Unknown Rx methylPREDNISolone [Medrol Dose 4 mg PO DAILY #1 tab.ds.pk 06/26/18 Unknown Rx Raymon] Review of Systems ROS: Stated complaint: COUGH/HEADACHE Other details as noted in HPI Constitutional: denies: chills, fever Eyes: denies: eye pain, eye discharge, vision change ENT: denies: ear pain, throat pain Respiratory: cough, shortness of breath, wheezing Cardiovascular: denies: chest pain, palpitations Endocrine: no symptoms reported Gastrointestinal: denies: abdominal pain, nausea, diarrhea Genitourinary: denies: urgency, dysuria, discharge Musculoskeletal: denies: back pain, joint swelling, arthralgia Skin: denies: rash, lesions Neurological: denies: headache, weakness, paresthesias Psychiatric: denies: anxiety, depression Hematological/Lymphatic: denies: easy bleeding, easy bruising Medications and Allergies Allergies Allergy/AdvReac Type Severity Reaction Status Date / Time codeine Allergy Swelling Verified 07/11/18 07:54 iodine Allergy Swelling Verified 07/11/18 07:54 lisinopril Allergy Angioedema Verified 07/11/18 07:54 Sulfa (Sulfonamide Allergy Swelling Verified 07/11/18 07:54 Antibiotics) Home Medications Medication Instructions Recorded Confirmed Last Taken Type amLODIPine [Norvasc] 5 mg PO QDAY #30 tablet 06/26/15 07/11/18 Unknown Rx Janumet XR 50-1,000 mg 50 mg PO DAILY 07/11/18 07/11/18 Unknown History Metoprolol 50 mg PO DAILY 07/11/18 07/11/18 Unknown History Omeprazole 40 mg PO DAILY 07/11/18 07/11/18 Unknown History Active Meds: Active Medications Acetaminophen (Tylenol) 650 mg PO Q4H PRN PRN Reason: Pain MILD(1-3)/Fever >100.5/HENRIQUEZ Albuterol (Proventil) 2.5 mg IH Q4HRT PRN PRN Reason: Shortness Of Breath Arformoterol Tartrate (Brovana Nebu) 15 mcg IH Q12HRT [facility] Last Admin: 07/11/18 20:31 Dose: 15 mcg Documented by: Budesonide (Pulmicort) 0.5 mg IH Q12HRT [facility] Last Admin: 07/11/18 20:31 Dose: 0.5 mg Documented by: Hydromorphone HCl (Dilaudid) 0.5 mg IV Q3H PRN PRN Reason: Pain , Severe (7-10) Last Admin: 07/11/18 20:56 Dose: 0.5 mg Documented by: Sodium Chloride (Nacl 0.9% 1000 Ml) 1,000 mls @ 75 mls/hr IV DIRECT DAVID Stop: 07/12/18 11:00 Ceftriaxone Sodium (Rocephin/Ns 2 Gm/100 Ml) 2 gm in 100 mls @ 200 mls/hr IV Q24HR DAVID; Protocol Last Admin: 07/11/18 19:05 Dose: 200 mls/hr Documented by: Azithromycin 500 mg/ Sodium (Chloride) 250 mls @ 250 mls/hr IV Q24HR [facility] Insulin Human Lispro (Humalog) 0 unit SUB-Q ACHS [facility]; Protocol Last Admin: 07/11/18 17:14 Dose: Not Given Documented by: Linagliptin (Tradjenta) 5 mg PO QDAY [facility] Metformin HCl (Glucophage Xr) 1,000 mg PO QDAY [facility] Metoprolol Succinate (Toprol Xl) 50 mg PO QDAY [facility] Last Admin: 07/11/18 19:31 Dose: 50 mg Documented by: Ondansetron HCl (Zofran) 4 mg IV Q8H PRN PRN Reason: Nausea And Vomiting Last Admin: 07/11/18 19:04 Dose: 4 mg Documented by: Oxycodone/Acetaminophen (Percocet 5/325) 1 tab PO Q6H PRN PRN Reason: Pain, Moderate (4-6) Pantoprazole Sodium (Protonix) 40 mg PO DAILY [facility] Last Admin: 07/11/18 19:31 Dose: 40 mg Documented by: Sodium Chloride (Sodium Chloride Flush Syringe 10 Ml) 10 ml IV BID [facility] Last Admin: 07/11/18 19:09 Dose: 10 ml Documented by: Sodium Chloride (Sodium Chloride Flush Syringe 10 Ml) 10 ml IV PRN PRN PRN Reason: LINE FLUSH Exam - Constitutional Vitals: Temp Pulse Resp BP Pulse Ox 98.4 F 72 18 124/68 93 07/11/18 17:32 07/11/18 20:41 07/11/18 20:41 07/11/18 19:31 07/11/18 17:32 General appearance: Present: no acute distress, well-nourished - EENT Eyes: Present: PERRL ENT: hearing intact, clear oral mucosa - Neck Neck: Present: supple, normal ROM - Respiratory Respiratory effort: normal Respiratory: bilateral: CTA, rhonchi, wheezing - Cardiovascular Heart rate: 78 Rhythm: regular Heart Sounds: Present: S1 & S2. Absent: rub, click - Extremities Extremities: no ischemia, pulses intact, pulses symmetrical, No edema Peripheral Pulses: within normal limits - Abdominal General gastrointestinal: Present: soft, non-tender, non-distended, normal bowel sounds Female genitourinary: Present: normal - Rectal Rectal Exam: deferred - Integumentary Integumentary: Present: clear, warm, dry - Musculoskeletal Musculoskeletal: gait normal, strength equal bilaterally - Psychiatric Psychiatric: appropriate mood/affect, intact judgment & insight - Neurologic Neurologic: CNII-XII intact, moves all extremities - Allied Health Allied health notes reviewed: nursing, case management Results - Labs CBC & Chem 7: 07/11/18 09:10 07/11/18 09:10 Labs: Laboratory Last Values WBC 7.8 K/mm3 (4.5-11.0) 07/11/18 09:10 RBC 4.28 M/mm3 (3.65-5.03) 07/11/18 09:10 Hgb 12.3 gm/dl (10.1-14.3) 07/11/18 09:10 Hct 36.2 % (30.3-42.9) 07/11/18 09:10 MCV 85 fl (79-97) 07/11/18 09:10 MCH 29 pg (28-32) 07/11/18 09:10 MCHC 34 % (30-34) 07/11/18 09:10 RDW 15.5 % (13.2-15.2) H 07/11/18 09:10 Plt Count 242 K/mm3 (140-440) 07/11/18 09:10 Lymph % (Auto) 35.4 % (13.4-35.0) H 07/11/18 09:10 [place] % (Auto) 12.9 % (0.0-7.3) H 07/11/18 09:10 Eos % (Auto) 0.7 % (0.0-4.3) 07/11/18 09:10 Baso % (Auto) 0.3 % (0.0-1.8) 07/11/18 09:10 Lymph # 2.8 K/mm3 (1.2-5.4) 07/11/18 09:10 [place] # 1.0 K/mm3 (0.0-0.8) H 07/11/18 09:10 Eos # 0.1 K/mm3 (0.0-0.4) 07/11/18 09:10 Baso # 0.0 K/mm3 (0.0-0.1) 07/11/18 09:10 Seg Neutrophils % 50.7 % (40.0-70.0) 07/11/18 09:10 Seg Neutrophils # 4.0 K/mm3 (1.8-7.7) 07/11/18 09:10 PT 15.1 Sec. (12.2-14.9) H 07/11/18 09:10 INR 1.12 (0.87-1.13) 07/11/18 09:10 APTT 38.2 Sec. (24.2-36.6) H 07/11/18 09:10 Sodium 138 mmol/L (137-145) 07/11/18 09:10 Potassium 4.2 mmol/L (3.6-5.0) 07/11/18 09:10 Chloride 104.1 mmol/L (98-107) 07/11/18 09:10 Carbon Dioxide 16 mmol/L (22-30) L 07/11/18 09:10 Anion Gap 22 mmol/L 07/11/18 09:10 BUN 5 mg/dL (7-17) L 07/11/18 09:10 Creatinine 0.5 mg/dL (0.7-1.2) L 07/11/18 09:10 Estimated GFR > 60 ml/min 07/11/18 09:10 BUN/Creatinine Ratio 10 % 07/11/18 09:10 Glucose 110 mg/dL (65-100) H 07/11/18 09:10 POC Glucose 92 (70-105) 07/11/18 21:07 Lactic Acid 1.00 mmol/L (0.7-2.0) 07/11/18 11:17 Calcium 8.6 mg/dL (8.4-10.2) 07/11/18 09:10 Magnesium 2.00 mg/dL (1.7-2.3) 07/11/18 09:10 Total Bilirubin 0.50 mg/dL (0.1-1.2) 07/11/18 09:10 Direct Bilirubin < 0.2 mg/dL (0-0.2) 07/11/18 09:10 Indirect Bilirubin 0.3 mg/dL 07/11/18 09:10 AST 35 units/L (5-40) 07/11/18 09:10 ALT 24 units/L (7-56) 07/11/18 09:10 Alkaline Phosphatase 63 units/L (35-129) 07/11/18 09:10 Troponin T < 0.010 ng/mL (0.00-0.029) 07/11/18 09:10 NT-Pro-B Natriuret Pep 30.95 pg/mL (0-900) 07/11/18 09:10 Total Protein 7.0 g/dL (6.3-8.2) 07/11/18 09:10 Albumin 3.6 g/dL (3.9-5) L 07/11/18 09:10 Albumin/Globulin Ratio 1.1 % 07/11/18 09:10 Short CBC 07/11/18 Range/Units 09:10 WBC 7.8 (4.5-11.0) K/mm3 Hgb 12.3 (10.1-14.3) gm/dl Hct 36.2 (30.3-42.9) % Plt Count 242 (140-440) K/mm3 BMP 07/11/18 09:10 Sodium 138 Potassium 4.2 Chloride 104.1 Carbon Dioxide 16 L BUN 5 L Creatinine 0.5 L Glucose 110 H Calcium 8.6 Cardiac Enzymes 07/11/18 Range/Units 09:10 Troponin T < 0.010 (0.00-0.029) ng/mL Liver Function 07/11/18 Range/Units 09:10 Total Bilirubin 0.50 (0.1-1.2) mg/dL Direct Bilirubin < 0.2 (0-0.2) mg/dL AST 35 (5-40) units/L ALT 24 (7-56) units/L Alkaline Phosphatase 63 (35-129) units/L Albumin 3.6 L (3.9-5) g/dL - Imaging and Cardiology Chest x-ray: report reviewed Imaging and Cardiology: CXR IMPRESSION: Subtle streaky and hazy opacities in the left lung base that may reflect atelectasis or infiltrate. Assessment and Plan Advance Directives: Yes (Ful code) VTE prophylaxis?: Chemical Plan of care discussed with patient/family: Yes - Patient Problems (1) Left lower lobe pneumonia Current Visit: Yes Status: Acute Qualifiers: Aspiration pneumonia type: unspecified Plan to address problem: Patient initiated on Ceftriaxone and Zithromax Also Bronchodilators and IV Solumedrol (2) HTN (hypertension) Current Visit: Yes Status: Chronic Qualifiers: Hypertension type: essential hypertension Qualified Code(s): I10 - Essential (primary) hypertension Plan to address problem: COnt Amlodipine (3) Reactive airway disease Current Visit: Yes Status: Acute Qualifiers: Asthma severity: moderate Asthma persistence: persistent Asthma complication type: with status asthmaticus Qualified Code(s): J45.42 - Moderate persistent asthma with status asthmaticus Plan to address problem: COnt Bronchodilators and IV Solumedrol (4) Allergic rhinitis Current Visit: Yes Status: Chronic Qualifiers: Allergic rhinitis trigger: unspecified Plan to address problem: Cont cetrizine and Flonase (5) DVT prophylaxis Current Visit: Yes Status: Acute Plan to address problem: On Lovenox and GI prophylaxis
[2018-07-12] MEDS ORDERED: SOLU-Medrol IV SCH
[2018-07-12] MEDS: AMBIEN PO PRN ×2 (02:25→22:19)
[2018-07-12] MEDS: HumaLOG SUB-Q SCH ×6 (07:53→22:03)
[2018-07-12] MEDS: BROVANA NEBU IH SCH ×2 (07:56→21:22)
[2018-07-12] MEDS: PULMICORT IH SCH ×2 (07:56→21:22)
[2018-07-12] MEDS: DUONEB *Not for PRN Use IH SCH ×4 (08:04→21:22)
--- NOTE | 2018-07-12 09:21 | Progress Note ---
Assessment and Plan Assessment and plan: Pneumonia left lower lobe. continue rocephin, Zithromax Add Robitussin for cough Reactive airway disease continue steroids Hypertension. Monitor BP Diabetes mellitus type 2. accuchek Qac and hs full code status Hospitalist Physical - Physical exam Narrative exam: GEN: Not in acute distress, HEENT: Normocephalic, atraumatic, Neck: supple, No JVD Lungs: Crackles left base, bilateral rhonchi Abd:soft, non tender, non distended, normal bowel sounds Ext: No edema, no clubbing, no cyanosis Neuro:Awake,alert,oriented x 3, no focal neurological signs Skin:No rash - Constitutional Vitals: Temp Pulse Resp BP Pulse Ox 97.7 F 68 18 122/74 94 07/12/18 05:29 07/12/18 08:06 07/12/18 08:06 07/12/18 05:29 07/12/18 05:29 General appearance: Present: no acute distress, well-nourished Results - Labs CBC & Chem 7: 07/11/18 09:10 07/11/18 09:10 Labs: Laboratory Last Values WBC 7.8 K/mm3 (4.5-11.0) 07/11/18 09:10 RBC 4.28 M/mm3 (3.65-5.03) 07/11/18 09:10 Hgb 12.3 gm/dl (10.1-14.3) 07/11/18 09:10 Hct 36.2 % (30.3-42.9) 07/11/18 09:10 MCV 85 fl (79-97) 07/11/18 09:10 MCH 29 pg (28-32) 07/11/18 09:10 MCHC 34 % (30-34) 07/11/18 09:10 RDW 15.5 % (13.2-15.2) H 07/11/18 09:10 Plt Count 242 K/mm3 (140-440) 07/11/18 09:10 Lymph % (Auto) 35.4 % (13.4-35.0) H 07/11/18 09:10 [place] % (Auto) 12.9 % (0.0-7.3) H 07/11/18 09:10 Eos % (Auto) 0.7 % (0.0-4.3) 07/11/18 09:10 Baso % (Auto) 0.3 % (0.0-1.8) 07/11/18 09:10 Lymph # 2.8 K/mm3 (1.2-5.4) 07/11/18 09:10 [place] # 1.0 K/mm3 (0.0-0.8) H 07/11/18 09:10 Eos # 0.1 K/mm3 (0.0-0.4) 07/11/18 09:10 Baso # 0.0 K/mm3 (0.0-0.1) 07/11/18 09:10 Seg Neutrophils % 50.7 % (40.0-70.0) 07/11/18 09:10 Seg Neutrophils # 4.0 K/mm3 (1.8-7.7) 07/11/18 09:10 PT 15.1 Sec. (12.2-14.9) H 07/11/18 09:10 INR 1.12 (0.87-1.13) 07/11/18 09:10 APTT 38.2 Sec. (24.2-36.6) H 07/11/18 09:10 Sodium 138 mmol/L (137-145) 07/11/18 09:10 Potassium 4.2 mmol/L (3.6-5.0) 07/11/18 09:10 Chloride 104.1 mmol/L (98-107) 07/11/18 09:10 Carbon Dioxide 16 mmol/L (22-30) L 07/11/18 09:10 Anion Gap 22 mmol/L 07/11/18 09:10 BUN 5 mg/dL (7-17) L 07/11/18 09:10 Creatinine 0.5 mg/dL (0.7-1.2) L 07/11/18 09:10 Estimated GFR > 60 ml/min 07/11/18 09:10 BUN/Creatinine Ratio 10 % 07/11/18 09:10 Glucose 110 mg/dL (65-100) H 07/11/18 09:10 POC Glucose 96 (70-105) 07/12/18 07:55 Lactic Acid 1.00 mmol/L (0.7-2.0) 07/11/18 11:17 Calcium 8.6 mg/dL (8.4-10.2) 07/11/18 09:10 Magnesium 2.00 mg/dL (1.7-2.3) 07/11/18 09:10 Total Bilirubin 0.50 mg/dL (0.1-1.2) 07/11/18 09:10 Direct Bilirubin < 0.2 mg/dL (0-0.2) 07/11/18 09:10 Indirect Bilirubin 0.3 mg/dL 07/11/18 09:10 AST 35 units/L (5-40) 07/11/18 09:10 ALT 24 units/L (7-56) 07/11/18 09:10 Alkaline Phosphatase 63 units/L (35-129) 07/11/18 09:10 Troponin T < 0.010 ng/mL (0.00-0.029) 07/11/18 09:10 NT-Pro-B Natriuret Pep 30.95 pg/mL (0-900) 07/11/18 09:10 Total Protein 7.0 g/dL (6.3-8.2) 07/11/18 09:10 Albumin 3.6 g/dL (3.9-5) L 07/11/18 09:10 Albumin/Globulin Ratio 1.1 % 07/11/18 09:10
[2018-07-12] MEDS ORDERED: GLUCOPHAGE XR PO SCH (10:00)
[2018-07-12] MEDS ORDERED: TRADJENTA PO SCH (10:00)
[2018-07-12] MEDS: ROCEPHIN/NS 2 GM/100 ML 2 GM/100 ML BAG IV SCH (10:42)
[2018-07-12] MEDS: PROTONIX PO SCH (10:42)
[2018-07-12] MEDS: TOPROL XL PO SCH (10:42)
[2018-07-12] MEDS: SOLU-Medrol IV SCH ×3 (10:43→17:23)
[2018-07-12] MEDS: SODIUM CHLORIDE FLUSH SYRINGE 10 ML IV SCH ×3 (10:43→22:04)
[2018-07-12 10:55] LABS: BUN/Creatinine Ratio 10; Blood Urea Nitrogen 5 mg/dL (7-17); Calcium 8.2 mg/dL (8.4-10.2); Hemolysis Index 3
[2018-07-12] MEDS: ROBITUSSIN PO PRN (11:02)
[2018-07-12] MEDS: ZITHROMAX 500 MG in NACL 0.9% 250ML 250 ML IV SCH (11:55)
[2018-07-12] MEDS: JANUMET PO SCH (16:16)
[2018-07-12] MEDS: PERCOCET 5/325 PO PRN (16:47)
[2018-07-12] MEDS: K-DUR PO SCH ×2 (17:31→22:19)
[2018-07-12] MEDS: ZOFRAN IV PRN (20:06)
[2018-07-13] MEDS: SOLU-Medrol IV SCH ×2 (00:57→08:48)
[2018-07-13] MEDS: ZOFRAN IV PRN (03:39)
[2018-07-13 06:54] LABS: Hematocrit 37.1 % (30.3-42.9); Hemoglobin 12.3 gm/dl (10.1-14.3); Mean Corpuscular HGB Conc 33 % (30-34); Mean Corpuscular Volume 86 fl (79-97); Platelet Count 294 K/mm3 (140-440); Red Blood Count 4.32 M/mm3 (3.65-5.03); Red Cell Distribution Width 15.4 % (13.2-15.2)
[2018-07-13 07:16] LABS: BUN/Creatinine Ratio 10; Blood Urea Nitrogen 6 mg/dL (7-17); Calcium 9.1 mg/dL (8.4-10.2); Hemolysis Index 2
[2018-07-13] MEDS: BROVANA NEBU IH SCH (08:10)
[2018-07-13] MEDS: DUONEB *Not for PRN Use IH SCH ×2 (08:10→14:11)
[2018-07-13] MEDS: PULMICORT IH SCH (08:11)
[2018-07-13] MEDS: HumaLOG SUB-Q SCH ×2 (08:48→12:46)
[2018-07-13] MEDS: PERCOCET 5/325 PO PRN (09:34)
[2018-07-13] MEDS: PROTONIX PO SCH (09:34)
[2018-07-13] MEDS: ROBITUSSIN PO PRN (09:34)
[2018-07-13] MEDS: TOPROL XL PO SCH (09:34)
[2018-07-13] MEDS: ROCEPHIN/NS 2 GM/100 ML 2 GM/100 ML BAG IV SCH (09:37)
[2018-07-13] MEDS: JANUMET PO SCH (09:38)
[2018-07-13] MEDS: SODIUM CHLORIDE FLUSH SYRINGE 10 ML IV SCH (09:48)
[2018-07-13] MEDS: ZITHROMAX 500 MG in NACL 0.9% 250ML 250 ML IV SCH (11:03)
--- NOTE | 2018-07-13 11:46 | Discharge Summary ---
Providers - Providers Date of Admission: 07/11/18 12:21 Date of discharge: 07/13/18 Attending physician: JD VALLADARES Primary care physician: HAFSA CRANE MD Hospitalization Condition: Fair Hospital course: Patient is 52 yo with history of hypertension, allergic rhinitis presented with difficulty in breathing, cough, wheezing for 1 week. She was treated with Z pack and medrol dose pack as out patient with no significant improvement. She therefore came to emergency department for evaluation. Chest X ray revealed opacity left lung base. She was diagnosed with pneumonia left lower lobe and reactive airway disease. patient was started on Antibiotics, solumedrol and admitted. She improved in few days, shortness of breath and wheezing resolved. She was discharged home on 07/13/18 on ceftin and Zithromax to complete treatment as an outpatient. Total time spent on discharge, 31 minute Disposition: DC- TO HOME OR SELFCARE - Discharge Diagnoses (1) Pneumonia Status: Acute Qualifiers: Pneumonia type: due to unspecified organism Laterality: left Lung location: lower lobe of lung Qualified Code(s): J18.1 - Lobar pneumonia, unspecified organism (2) Reactive airway disease Status: Acute Qualifiers: Asthma severity: moderate Asthma persistence: persistent Asthma complication type: with status asthmaticus Qualified Code(s): J45.42 - Moderate persistent asthma with status asthmaticus (3) HTN (hypertension) Status: Chronic Qualifiers: Hypertension type: essential hypertension Qualified Code(s): I10 - Essential (primary) hypertension (4) Obesity (BMI 30.0-34.9) Status: Chronic Core Measure Documentation - Palliative Care Palliative Care/ Comfort Measures: Not Applicable - Core Measures Any of the following diagnoses?: none Exam - Constitutional Vitals: Temp Pulse Resp BP Pulse Ox 97.4 F L 80 20 134/76 93 07/13/18 05:52 07/13/18 09:34 07/13/18 08:29 07/13/18 09:34 07/13/18 05:52 Plan Activity: no restrictions Diet: low fat, low cholesterol, low salt Additional Instructions: 1.Follow up with Dr. Benigno Farley in 1 week Follow up with: PRIMARY CAREMD [Primary Care Provider] - 3-5 Days Forms: Work/School Release Form Prescriptions: predniSONE [Deltasone] 10 mg PO QDAY 5 Days tab Albuterol Sulfate [Ventolin HFA] 2 puff IH Q4H PRN #1 pump PRN Reason: Shortness Of Breath
[2018-07-13 14:34] VITALS: BP 137/74
== END 2018-07-13 14:15 | disposition home or self-care (01) | DRG 202 ==
LOC: ED 07:51 → 3A 12:21
PROVIDERS: ADMIT Internal Medicine; ATTEND Internal Medicine
DX: J45.42 Moderate persistent asthma with status asthmaticus (principal); J18.1 Lobar pneumonia, unspecified organism; E87.2 Acidosis; I10 Essential (primary) hypertension; E11.9 Type 2 diabetes mellitus without complications; G47.30 Sleep apnea, unspecified; J30.9 Allergic rhinitis, unspecified; K21.9 Gastro-esophageal reflux disease without esophagitis; Z90.711 Acquired absence of uterus with remaining cervical stump; Z98.51 Tubal ligation status; Z82.49 Family history of ischemic heart disease and other diseases of the circulatory system; Z79.899 Other long term (current) drug therapy; Z88.5 Allergy status to narcotic agent; Z88.2 Allergy status to sulfonamides
CPT/HCPCS: 36415; 71045; 80048; 80076; 82140; 82962; 83735; 83880; 84484; 85025; 85027; 85610; 85730; 87040; 93005; 93010; 94640; 94667; G0378; J0456; J0696; J1170; J1200; J1815; J1956; J2405; J2543; J2920; J3475; J7030; J7050

== ENCOUNTER 2018-07-28 19:10 | Emergency (ER) | payer BC ==
--- NOTE | 2018-07-28 19:54 | Emergency Department Report ---
Chief Complaint: Abdominal Pain Stated Complaint: SIDE/STOMACH SWOLLEN Time Seen by Provider: 07/28/18 19:50 - HPI History of Present Illness: This is a 52 y.o. female that presents with abdominal pain x 3 days. PMH HTN and DM. Denies nausea, vomiting, or diarrhea. - ROS Review of Systems: diffuse abdominal pain - Exam Vital Signs: Vital Signs 07/28/18 19:50 Temperature 98.5 F Pulse Rate 85 Respiratory 16 Rate Blood Pressure 138/85 O2 Sat by Pulse 99 Oximetry MSE screening note: Focused history and physical exam performed. Due to findings the following was ordered: Labs and CT of abdomen Fast track for further evaluation. ED Disposition for MSE Condition: Stable Instructions: Abdominal Pain (ED) Referrals: MIGUELANGEL MURPHY MD [Primary Care Provider] - 3-5 Days
[2018-07-28 20:29] LABS: Bilirubin,Urine NEG (Negative); Blood,Urine NEG (Negative); Color,Urine Yellow (Yellow); Protein,Urine <15 mg/dL mg/dL (Negative); RBC,Urine < 1.0 /HPF (0.0-6.0); Urobilinogen,Urine < 2.0 mg/dL (<2.0)
[2018-07-28 20:33] LABS: Basophils % (Auto) 0.2 % (0.0-1.8); Eosinophils # (Auto) 0.2 K/mm3 (0.0-0.4); Hematocrit 35.4 % (30.3-42.9); Hemoglobin 11.6 gm/dl (10.1-14.3); Lymphocytes # (Auto) 2.8 K/mm3 (1.2-5.4); Lymphocytes % (Auto) 16.2 % (13.4-35.0); Mean Corpuscular HGB Conc 33 % (30-34); Mean Corpuscular Volume 86 fl (79-97); Monocytes # (Auto) 1.3 K/mm3 (0.0-0.8); Monocytes % (Auto) 7.6 % (0.0-7.3); Platelet Count 315 K/mm3 (140-440); Red Blood Count 4.12 M/mm3 (3.65-5.03); Red Cell Distribution Width 15.8 % (13.2-15.2)
[2018-07-28 20:48] LABS: Alanine Aminotransferase 11 units/L (7-56); Albumin 4.3 g/dL (3.9-5); BUN/Creatinine Ratio 15; Blood Urea Nitrogen 12 mg/dL (7-17); Calcium 9.6 mg/dL (8.4-10.2); Hemolysis Index 3
--- NOTE | 2018-07-28 22:43 | Cat Scan Report ---
PROCEDURE: CT ABDOMEN PELVIS WO CON TECHNIQUE: Computerized axial tomography of the abdomen and pelvis was performed without intravenous contrast. This study is performed without intravascular contrast material and its sensitivity for ab dominal and pelvic pathology, including neoplasms, inflammation, abscess, free fluid, thrombosis, art erial dissection and infarction, is reduced compared with a contrast enhanced study. HISTORY: RUQ LUQ tenderness COMPARISONS: None . FINDINGS: Visualized lower thorax: No significant abnormality. Liver: Liver measures 22 cm craniocaudal. Spleen: Normal size and attenuation. Gallbladder and biliary system: Normal. Pancreas: Normal. Adrenals: Normal. Kidneys: Normal. GI tract: There is left colonic diverticulosis with acute inflammation, compatible with diverticuliti s. No extraluminal air or abscess is seen. No bowel obstruction. The appendix is visualized and does not appear inflamed. Lymph nodes and mesentery: Normal. Vasculature: Normal.. Bladder: Normal. Reproductive organs: Uterus is not identified. Peritoneum: No free fluid. Musculoskeletal structures: No significant abnormality. Other: None. IMPRESSION: Findings are compatible with left colon diverticulitis. No extraluminal air or abscess is seen . This document is electronically signed by Stacey Tobar MD., July 28 2018 10:40:54 PM ET
--- NOTE | 2018-07-28 23:17 | Emergency Department Report ---
ED Abdominal Pain HPI - General Chief Complaint: Abdominal Pain Stated Complaint: SIDE/STOMACH SWOLLEN Time Seen by Provider: 07/28/18 19:50 Source: patient Mode of arrival: Ambulatory Limitations: No Limitations - History of Present Illness Initial Comments: Pt is a 52 yo female who presents to the ED with c/o LLQ pain that began two days ago. She has associated nausea. She denies any vomiting. She states her BMs have been normal. She denies any blood in the stool. She is able to tolerate PO intake without any difficulty. The patient denies any fever. She has a hx of diverticulitis. She has a GI doctor who she sees Dr. Qureshi. Severity scale (0 -10): 8 - Related Data Home Medications Medication Instructions Recorded Confirmed Last Taken Janumet XR 50-1,000 mg 50 mg PO DAILY 07/11/18 07/11/18 Unknown Metoprolol 50 mg PO DAILY 07/11/18 07/11/18 Unknown Omeprazole 40 mg PO DAILY 07/11/18 07/11/18 Unknown Previous Rx's Medication Instructions Recorded Last Taken Type amLODIPine [Norvasc] 5 mg PO QDAY #30 tablet 06/26/15 Unknown Rx Albuterol Sulfate [Ventolin HFA] 2 puff IH Q4H PRN #1 pump 07/13/18 Unknown Rx predniSONE [Deltasone] 10 mg PO QDAY 5 Days tab 07/13/18 Unknown Rx Ciprofloxacin HCl [Ciprofloxacin 500 mg PO BID 10 Days #20 tablet 07/28/18 Unknown Rx TAB] Ketorolac [Toradol] 10 mg PO Q6H PRN #10 tablet 07/28/18 Unknown Rx Promethazine [Phenergan TAB] 25 mg PO Q8HR PRN #10 tab 07/28/18 Unknown Rx metroNIDAZOLE [Metronidazole] 500 mg PO TID 10 Days #30 tablet 07/28/18 Unknown Rx Allergies Allergy/AdvReac Type Severity Reaction Status Date / Time codeine Allergy Swelling Verified 07/11/18 07:54 iodine Allergy Swelling Verified 07/11/18 07:54 lisinopril Allergy Angioedema Verified 07/11/18 07:54 Sulfa (Sulfonamide Allergy Swelling Verified 07/11/18 07:54 Antibiotics) ED Review of Systems ROS: Stated complaint: SIDE/STOMACH SWOLLEN Other details as noted in HPI Comment: All other systems reviewed and negative ED Past Medical Hx - Past Medical History Hx Hypertension: Yes Hx Heart Attack/AMI: No Hx Congestive Heart Failure: No Hx Diabetes: Yes Hx Deep Vein Thrombosis: No Hx Pulmonary Embolism: No Hx GERD: Yes Hx Liver Disease: No Hx Renal Disease: No Hx Sickle Cell Disease: No Hx Arthritis: No Hx Seizures: No Hx Kidney Stones: No Hx Asthma: No Hx COPD: No Hx Tuberculosis: No Hx Dementia: No Hx HIV: No Additional medical history: Negative cardiac catheterization 2013. "ABNORMAL EKG". sleep apnea - Surgical History Hx Coronary Stent: No Hx Open Heart Surgery: No Hx Pacemaker: No Hx Internal Defibrillator: No Hx Cholecystectomy: No Hx Appendectomy: No Hx Breast Surgery: No Additional Surgical History: partial hysterectomy. nasal surgery. tubal ligation. carpul tunnel bilat. tumor left eardrum removed, lisbeth tuck - Social History Smoking Status: Never Smoker Substance Use Type: None - Medications Home Medications: Home Medications Medication Instructions Recorded Confirmed Last Taken Type amLODIPine [Norvasc] 5 mg PO QDAY #30 tablet 06/26/15 07/11/18 Unknown Rx Janumet XR 50-1,000 mg 50 mg PO DAILY 07/11/18 07/11/18 Unknown History Metoprolol 50 mg PO DAILY 07/11/18 07/11/18 Unknown History Omeprazole 40 mg PO DAILY 07/11/18 07/11/18 Unknown History Albuterol Sulfate [Ventolin HFA] 2 puff IH Q4H PRN #1 pump 07/13/18 Unknown Rx predniSONE [Deltasone] 10 mg PO QDAY 5 Days tab 07/13/18 Unknown Rx Ciprofloxacin HCl [Ciprofloxacin 500 mg PO BID 10 Days #20 tablet 07/28/18 Unknown Rx TAB] Ketorolac [Toradol] 10 mg PO Q6H PRN #10 tablet 07/28/18 Unknown Rx Promethazine [Phenergan TAB] 25 mg PO Q8HR PRN #10 tab 07/28/18 Unknown Rx metroNIDAZOLE [Metronidazole] 500 mg PO TID 10 Days #30 tablet 07/28/18 Unknown Rx ED Physical Exam - General Limitations: No Limitations General appearance: alert, in no apparent distress - Head Head exam: Present: atraumatic, normocephalic - ENT ENT exam: Present: mucous membranes moist - Respiratory Respiratory exam: Present: normal lung sounds bilaterally. Absent: respiratory distress, wheezes, rales, rhonchi, stridor, chest wall tenderness, accessory muscle use, decreased breath sounds, prolonged expiratory - Cardiovascular Cardiovascular Exam: Present: regular rate, normal rhythm, normal heart sounds. Absent: systolic murmur, rubs, gallop - GI/Abdominal GI/Abdominal exam: Present: soft, tenderness, normal bowel sounds (TTP over the LLQ). Absent: distended, guarding, rebound, rigid - Neurological Exam Neurological exam: Present: alert, oriented X3 - Psychiatric Psychiatric exam: Present: normal affect, normal mood - Skin Skin exam: Present: warm, dry, intact ED Course Vital Signs 07/28/18 07/28/18 19:50 23:35 Temperature 98.5 F Pulse Rate 85 80 Respiratory 16 17 Rate Blood Pressure 138/85 O2 Sat by Pulse 99 97 Oximetry ED Medical Decision Making - Lab Data Result diagrams: 07/28/18 20:08 07/28/18 20:08 Laboratory Results - last 24 hr 07/28/18 07/28/18 07/28/18 20:08 20:08 20:08 WBC 17.0 H RBC 4.12 Hgb 11.6 Hct 35.4 MCV 86 MCH 28 MCHC 33 RDW 15.8 H Plt Count 315 Lymph % (Auto) 16.2 [place] % (Auto) 7.6 H Eos % (Auto) 1.0 Baso % (Auto) 0.2 Lymph # 2.8 [place] # 1.3 H Eos # 0.2 Baso # 0.0 Seg Neutrophils % 75.0 H Seg Neutrophils # 12.8 H Sodium 141 Potassium 3.8 Chloride 99.9 Carbon Dioxide 28 Anion Gap 17 BUN 12 Creatinine 0.8 Estimated GFR > 60 BUN/Creatinine Ratio 15 Glucose 131 H Calcium 9.6 Total Bilirubin 0.40 AST 11 ALT 11 Alkaline Phosphatase 75 Total Protein 6.8 Albumin 4.3 Albumin/Globulin Ratio 1.7 Lipase Urine Color Yellow Urine Turbidity Clear Urine pH 5.0 Ur Specific [employer] 1.015 Urine Protein <15 mg/dl Urine Glucose (UA) Neg Urine Ketones Neg Urine Blood Neg Urine Nitrite Neg Urine Bilirubin Neg Urine Urobilinogen < 2.0 Ur Leukocyte Esterase Neg Urine WBC (Auto) 1.0 Urine RBC (Auto) < 1.0 U Epithel Cells (Auto) 1.0 07/28/18 20:08 WBC RBC Hgb Hct MCV MCH MCHC RDW Plt Count Lymph % (Auto) [place] % (Auto) Eos % (Auto) Baso % (Auto) Lymph # [place] # Eos # Baso # Seg Neutrophils % Seg Neutrophils # Sodium Potassium Chloride Carbon Dioxide Anion Gap BUN Creatinine Estimated GFR BUN/Creatinine Ratio Glucose Calcium Total Bilirubin AST ALT Alkaline Phosphatase Total Protein Albumin Albumin/Globulin Ratio Lipase 50 Urine Color Urine Turbidity Urine pH Ur Specific [employer] Urine Protein Urine Glucose (UA) Urine Ketones Urine Blood Urine Nitrite Urine Bilirubin Urine Urobilinogen Ur Leukocyte Esterase Urine WBC (Auto) Urine RBC (Auto) U Epithel Cells (Auto) - Radiology Data Radiology results: report reviewed HISTORY: RUQ LUQ tenderness COMPARISONS: None . FINDINGS: Visualized lower thorax: No significant abnormality. Liver: Liver measures 22 cm craniocaudal. Spleen: Normal size and attenuation. Gallbladder and biliary system: Normal. Pancreas: Normal. Adrenals: Normal. Kidneys: Normal. GI tract: There is left colonic diverticulosis with acute inflammation, compatible with diverticulitis. No extraluminal air or abscess is seen. No bowel obstruction. The appendix is visualized and does not appear inflamed. Lymph nodes and mesentery: Normal. Vasculature: Normal.. Bladder: Normal. Reproductive organs: Uterus is not identified. Peritoneum: No free fluid. Musculoskeletal structures: No significant abnormality. Other: None. IMPRESSION: Findings are compatible with left colon diverticulitis. No extraluminal air or abscess is seen . This document is electronically signed by Stacey Tobar MD., July 28 2018 10:40:54 PM ET - Medical Decision Making Pt presents with LLQ pain. has hx of diverticulitis. no fever, no emesis. does have nausea. able to tolerate PO intake. VSS. CT abd/pelvis shows diverticulitis without obstruction. Pt tx with flagyl and cipro. Will have pt follow up with her GI doctor in the next 2-3 days. Return to the ED for any new or worsening symptoms. - Differential Diagnosis Diverticulitis, Constipation, ABd pain, kidney stones Critical care attestation.: If time is entered above; I have spent that time in minutes in the direct care of this critically ill patient, excluding procedure time. ED Disposition Clinical Impression: Diverticulitis Abdominal pain Qualifiers: Abdominal location: left lower quadrant Qualified Code(s): R10.32 - Left lower quadrant pain Leukocytosis Qualifiers: Leukocytosis type: unspecified Qualified Code(s): D72.829 - Elevated white blood cell count, unspecified Disposition: DC- TO HOME OR SELFCARE Is pt being admited?: No Does the pt Need Aspirin: No Condition: Stable Instructions: Diverticulitis (ED), Diverticulitis Diet (ED), Abdominal Pain (ED) Additional Instructions: Follow up with your GI doctor, Dr. Qureshi in the next 2-3 days. Follow up with your primary care doctor in the next 2-3 days. Take all medication as prescribed. Return to the emergency room for any new or worsening symptoms. Prescriptions: Ciprofloxacin HCl [Ciprofloxacin TAB] 500 mg PO BID 10 Days #20 tablet metroNIDAZOLE [Metronidazole] 500 mg PO TID 10 Days #30 tablet Promethazine [Phenergan TAB] 25 mg PO Q8HR PRN #10 tab PRN Reason: Nausea Ketorolac [Toradol] 10 mg PO Q6H PRN #10 tablet PRN Reason: Pain Referrals: MIGUELANGEL MURPHY MD [Primary Care Provider] - 2-3 Days ROXANNE QURESHI MD [Staff Physician] - 2-3 Days Forms: Work/School Release Form(ED) Time of Disposition: 23:20 Print Language: AZERI
[2018-07-29 00:19] VITALS: BP 138/85
== END 2018-07-28 23:35 | disposition home or self-care (01) ==
LOC: ED 19:10
DX: K57.92 Diverticulitis of intestine, part unspecified, without perforation or abscess without bleeding (principal); D72.829 Elevated white blood cell count, unspecified; I10 Essential (primary) hypertension; E11.9 Type 2 diabetes mellitus without complications
CPT/HCPCS: 36415; 74176; 80053; 81001; 83690; 85025

== ENCOUNTER 2018-08-07 14:06 | Outpatient (CLI) | payer BC ==
[2018-08-07 14:28] LABS: Basophils % (Auto) 0.4 % (0.0-1.8); Eosinophils # (Auto) 0.1 K/mm3 (0.0-0.4); Eosinophils % (Auto) 1.2 % (0.0-4.3); Hemoglobin 12.4 gm/dl (10.1-14.3); Lymphocytes # (Auto) 3.1 K/mm3 (1.2-5.4); Lymphocytes % (Auto) 29.3 % (13.4-35.0); Mean Corpuscular HGB Conc 34 % (30-34); Mean Corpuscular Volume 86 fl (79-97); Monocytes # (Auto) 0.8 K/mm3 (0.0-0.8); Monocytes % (Auto) 7.6 % (0.0-7.3); Platelet Count 372 K/mm3 (140-440); Red Blood Count 4.32 M/mm3 (3.65-5.03)
[2018-08-07 15:08] LABS: Alanine Aminotransferase 13 units/L (7-56); Albumin 4.3 g/dL (3.9-5); BUN/Creatinine Ratio 13; Blood Urea Nitrogen 9 mg/dL (7-17); Calcium 9.4 mg/dL (8.4-10.2); Chol/HDL Ratio 2.66 %; HDL Cholesterol 53 mg/dL (40-59); Hemolysis Index 0; LDL Cholesterol,Direct 74 mg/dL (50-130)
== END 2018-08-07 14:07 | disposition home or self-care (01) ==
LOC: LAB 14:06
PROVIDERS: ATTEND Internal Medicine
DX: Z13.228 Encounter for screening for other metabolic disorders (principal); Z13.29 Encounter for screening for other suspected endocrine disorder; E11.9 Type 2 diabetes mellitus without complications; R68.89 Other general symptoms and signs; R79.89 Other specified abnormal findings of blood chemistry; R94.6 Abnormal results of thyroid function studies; E66.9 Obesity, unspecified; I10 Essential (primary) hypertension; K21.9 Gastro-esophageal reflux disease without esophagitis; Z90.710 Acquired absence of both cervix and uterus
CPT/HCPCS: 36415; 80053; 80061; 83036; 84443; 85025

== ENCOUNTER 2019-08-14 14:20 | Emergency (ER) | payer SELFPAY ==
[2019-08-14] MEDS ORDERED: METOCLOPRAMIDE 10 MG/2 ML INJ IV STA (16:01)
[2019-08-14] MEDS ORDERED: KETOROLAC 30 MG/1 ML INJ IV STA (16:01)
[2019-08-14] MEDS ORDERED: diphenhydrAMINE 50 MG/ML VIAL IV STA (16:01)
--- NOTE | 2019-08-14 16:36 | XRay Report ---
CHEST 2 VIEWS INDICATION / CLINICAL INFORMATION: sob and chest pain. COMPARISON: One view of the chest from 07/11/2018. FINDINGS: SUPPORT DEVICES: None. HEART / MEDIASTINUM: No significant abnormality. LUNGS / PLEURA: No significant pulmonary or pleural abnormality. No pneumothorax. ADDITIONAL FINDINGS: No significant additional findings. IMPRESSION: 1. No acute abnormality of the chest. Signer Name: Sacha Abraham MD Signed: 08/14/2019 4:32 PM Workstation Name: [id number]
[2019-08-14 17:13] LABS: Basophils % (Auto) 0.3 % (0.0-1.8); Eosinophils # (Auto) 0.1 K/mm3 (0.0-0.4); Eosinophils % (Auto) 1.4 % (0.0-4.3); Hematocrit 36.1 % (30.3-42.9); Lymphocytes # (Auto) 1.7 K/mm3 (1.2-5.4); Mean Corpuscular HGB Conc 33 % (30-34); Mean Corpuscular Volume 86 fl (79-97); Monocytes # (Auto) 0.8 K/mm3 (0.0-0.8); Monocytes % (Auto) 9.9 % (0.0-7.3); Platelet Count 235 K/mm3 (140-440); Red Cell Distribution Width 13.6 % (13.2-15.2)
--- NOTE | 2019-08-14 17:38 | Cat Scan Report ---
CT HEAD WITHOUT CONTRAST INDICATION / CLINICAL INFORMATION: Headache TECHNIQUE: All CT scans at this location are performed using CT dose reduction for ALARA by means of automated e xposure control. COMPARISON: None available. FINDINGS: HEMORRHAGE: No evidence of intracranial hemorrhage or extra-axial fluid collection. EXTRA-AXIAL SPACES: Cortical sulci, sylvian fissures and basilar cisterns have an unremarkable appear ance. VENTRICULAR SYSTEM: The ventricular system is of normal size and configuration. CEREBRAL PARENCHYMA: No areas of abnormal brain parenchymal attenuation are identified. There is no i ndication of recent infarction. MIDLINE SHIFT OR HERNIATION: There is no mass effect. CEREBELLUM / BRAINSTEM: Brainstem and cerebellum have an unremarkable appearance. INTRACRANIAL VESSELS:No abnormalities are identified on this noncontrast head CT. ORBITS: visualized portions of the orbits have an unremarkable appearance. SOFT TISSUES of HEAD: No significant abnormality. CALVARIUM: Evaluation of bone windows reveals no abnormalities. PARANASAL SINUSES / MASTOID AIR CELLS: Paranasal sinuses are free from inflammatory mucosal disease. Patient is status post left-sided mastoidectomy. Right-sided mastoid air cells are normally pneumatiz ed. IMPRESSION: 1. No intracranial abnormalities are identified on head CT without contrast. Signer Name: Len Mitchell MD Signed: 08/14/2019 5:34 PM Workstation Name: [id number]
[2019-08-14 17:49] LABS: Alanine Aminotransferase 15 units/L (7-56); Albumin 4.3 g/dL (3.9-5); BUN/Creatinine Ratio 9; Blood Urea Nitrogen 6 mg/dL (7-17); Calcium 9.8 mg/dL (8.4-10.2); Hemolysis Index 2
--- NOTE | 2019-08-14 18:16 | Emergency Department Report ---
ED Headache HPI - General Chief Complaint: Weakness Stated Complaint: DIZZY/HEADACHES Time Seen by Provider: 08/14/19 15:58 - History of Present Illness Initial Comments: 53-year-old -[place] female with a past medical history diabetes, acid reflux and a reported negative cardiovascular work-up less than 2 years ago pres ents to the emergency department complaining of a frontal headache that radiates to the parietal region dull and throbbing in nature associated with some photophobia and presyncope and chills. She also has been having some vague malaise and a cough not productive. Reports no hemoptysis no hematemesis no hematochezia. She reports no recent foreign travel no known contact with any patients with the coronavirus. 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 Associated Symptoms: denies: confusion, fatigue, facial pain, fever/chills, nausea/vomiting, nasal congestion, nasal drainage, sinus infection, stiff neck, vision changes, weakness Allergies/Adverse Reactions: Allergies codeine Allergy (Verified 07/11/18 07:54) Swelling iodine Allergy (Verified 07/11/18 07:54) Swelling lisinopril Allergy (Verified 07/11/18 07:54) Angioedema Sulfa (Sulfonamide Antibiotics) Allergy (Verified 07/11/18 07:54) Swelling Home Medications: Ambulatory Orders amLODIPine 5 mg PO QDAY #30 tablet 06/26/15 Janumet XR 50-1,000 mg 50 mg PO DAILY 07/11/18 Metoprolol 50 mg PO DAILY 07/11/18 Omeprazole 40 mg PO DAILY 07/11/18 Albuterol Sulfate [Ventolin HFA] 2 puff IH Q4H PRN #1 pump 07/13/18 predniSONE [Deltasone] 10 mg PO QDAY 5 Days tab 07/13/18 Ciprofloxacin HCl [Ciprofloxacin TAB] 500 mg PO BID 10 Days #20 tablet 07/28/18 Ketorolac [Toradol] 10 mg PO Q6H PRN #10 tablet 07/28/18 Promethazine [Phenergan TAB] 25 mg PO Q8HR PRN #10 tab 07/28/18 metroNIDAZOLE [Metronidazole] 500 mg PO TID 10 Days #30 tablet 07/28/18 Butalb/Acetaminophen/Caffeine [Fioricet 50-300-40 mg CAP] 1 cap PO Q8HR PRN #20 cap 08/14/19 ED Review of Systems ROS: Stated complaint: DIZZY/HEADACHES Other details as noted in HPI Comment: All other systems reviewed and negative ED Past Medical Hx - Past Medical History Previous Medical History?: Yes Hx Hypertension: Yes Hx Heart Attack/AMI: No Hx Congestive Heart Failure: No Hx Diabetes: Yes Hx Deep Vein Thrombosis: No Hx Pulmonary Embolism: No Hx GERD: Yes Hx Liver Disease: No Hx Renal Disease: No Hx Sickle Cell Disease: No Hx Arthritis: No Hx Seizures: No Hx Kidney Stones: No Hx Asthma: No Hx COPD: No Hx Tuberculosis: No Hx Dementia: No Hx HIV: No Additional medical history: Negative cardiac catheterization 2013. "ABNORMAL EKG". sleep apnea - Surgical History Past Surgical History?: Yes Hx Coronary Stent: No Hx Open Heart Surgery: No Hx Pacemaker: No Hx Internal Defibrillator: No Hx Cholecystectomy: No Hx Appendectomy: No Hx Breast Surgery: No Additional Surgical History: partial hysterectomy. nasal surgery. tubal ligation. carpul tunnel bilat. tumor left eardrum removed, lisbeth tuck - Social History Smoking Status: Never Smoker Substance Use Type: None - Medications Home Medications: Home Medications Medication Instructions Recorded Confirmed Last Taken Type amLODIPine 5 mg PO QDAY #30 tablet 06/26/15 07/11/18 Unknown Rx Janumet XR 50-1,000 mg 50 mg PO DAILY 07/11/18 07/11/18 Unknown History Metoprolol 50 mg PO DAILY 07/11/18 07/11/18 Unknown History Omeprazole 40 mg PO DAILY 07/11/18 07/11/18 Unknown History Albuterol Sulfate [Ventolin HFA] 2 puff IH Q4H PRN #1 pump 07/13/18 Unknown Rx predniSONE [Deltasone] 10 mg PO QDAY 5 Days tab 07/13/18 Unknown Rx Ciprofloxacin HCl [Ciprofloxacin 500 mg PO BID 10 Days #20 tablet 07/28/18 Unknown Rx TAB] Ketorolac [Toradol] 10 mg PO Q6H PRN #10 tablet 07/28/18 Unknown Rx Promethazine [Phenergan TAB] 25 mg PO Q8HR PRN #10 tab 07/28/18 Unknown Rx metroNIDAZOLE [Metronidazole] 500 mg PO TID 10 Days #30 tablet 07/28/18 Unknown Rx Butalb/Acetaminophen/Caffeine 1 cap PO Q8HR PRN #20 cap 08/14/19 Unknown Rx [Fioricet 50-300-40 mg CAP] ED Physical Exam - General Limitations: No Limitations General appearance: alert, in no apparent distress - Head Head exam: Present: atraumatic, normocephalic - Eye Eye exam: Present: normal appearance, PERRL, EOMI, other (Negative funduscopic examination is noted.). Absent: nystagmus Pupils: Present: normal accommodation - ENT ENT exam: Present: normal exam, mucous membranes moist - Neck Neck exam: Present: normal inspection, full ROM. Absent: lymphadenopathy - Respiratory Respiratory exam: Present: normal lung sounds bilaterally. Absent: respiratory distress, wheezes, rales, chest wall tenderness, accessory muscle use, decreased breath sounds - Cardiovascular Cardiovascular Exam: Present: regular rate, normal rhythm. Absent: systolic murmur, diastolic murmur, rubs, gallop - GI/Abdominal GI/Abdominal exam: Present: soft, normal bowel sounds. Absent: distended, tenderness, hyperactive bowel sounds, hypoactive bowel sounds, organomegaly - Extremities Exam Extremities exam: Present: normal inspection - Back Exam Back exam: Present: normal inspection - Neurological Exam Neurological exam: Present: alert, oriented X3, CN II-XII intact, normal gait, reflexes normal. Absent: motor sensory deficit - Psychiatric Psychiatric exam: Present: normal affect, normal mood. Absent: homicidal ideation, suicidal ideation - Skin Skin exam: Present: warm, dry, intact, normal color. Absent: rash ED Medical Decision Making - Lab Data Result diagrams: 08/14/19 16:54 08/14/19 16:54 - Radiology Data Radiology results: report reviewed Referring Physician:PERRY TEIXEIRAPatient Name:DIEGO MOOREPatient ID:[id number] of :[id number]:Fema leAccession:[id number] Date:2018-91-04Tuhtha Status:Finalized Findings [facility] [address] [place] [address] XRay Report Signed Patient: DIEGO MOORE MR#: [id number] : 1965 Acct:[id number] Age/Sex: 53 / F ADM Date: 08/14/19 Loc: ED Attending Dr: Ordering Physician: JUAN VELASCO Date of Service: 08/14/19 Procedure(s): XR chest routine 2V Accession Number(s): [id number] cc: JUAN VELASCO Fluoro Time In Minutes: CHEST 2 VIEWS INDICATION / CLINICAL INFORMATION: sob and chest pain. COMPARISON: One view of the chest from 07/11/2018. FINDINGS: SUPPORT DEVICES: None. HEART / MEDIASTINUM: No significant abnormality. LUNGS / PLEURA: No significant pulmonary or pleural abnormality. No pneumothorax. ADDITIONAL FINDINGS: No significant additional findings. IMPRESSION: 1. No acute abnormality of the chest. Signer Name: Sacha Abraham MD Signed: 08/14/2019 4:32 PM Workstation Name: [id number] Transcribed By: JAMSHID Dictated By: Sacha Abraham MD Electronically Authenticated By: Sacha Abraham MD Signed Date/Time: 08/14/19 163 DD/ 163 TD/TT: Referring Physician:PERRY TEIXEIRAPatient Name:DIEGO Grace nt ID:[id number] of :[id number]:FemaleAccession:[id number] Date:1310-05-52Ggeiih Status:Finalized Findings [address] [address] Cat Scan Report Signed Patient: DIEGO MOORE MR#: [id number] : 1965 Acct:[id number] Age/Sex: 53 / F ADM Date: 08/14/19 Loc: ED Attending Dr: Ordering Physician: JUAN VELASCO Date of Service: 08/14/19 Procedure(s): CT head/brain wo con Accession Number(s): [id number] cc: JUAN VELASCO CT HEAD WITHOUT CONTRAST INDICATION / CLINICAL INFORMATION: Headache TECHNIQUE: All CT scans at this location are performed using CT dose reduction for ALARA by means of automated exposure control. COMPARISON: None available. FINDINGS: HEMORRHAGE: No evidence of intracranial hemorrhage or extra-axial fluid collection. EXTRA-AXIAL SPACES: Cortical sulci, sylvian fissures and basilar cisterns have an unremarkable appearance. VENTRICULAR SYSTEM: The ventricular system is of normal size and configuration. CEREBRAL PARENCHYMA: No areas of abnormal brain parenchymal attenuation are identified. There is no indication of recent infarction. MIDLINE SHIFT OR HERNIATION: There is no mass effect. CEREBELLUM / BRAINSTEM: Brainstem and cerebellum have an unremarkable appearance. INTRACRANIAL VESSELS:No abnormalities are identified on this noncontrast head CT. ORBITS: visualized portions of the orbits have an unremarkable appearance. SOFT TISSUES of HEAD: No significant abnormality. CALVARIUM: Evaluation of bone windows reveals no abnormalities. PARANASAL SINUSES / MASTOID AIR CELLS: Paranasal sinuses are free from inflammatory mucosal disease. Patient is status post left-sided mastoidectomy. Right-sided mastoid air cells are normally pneumatized. IMPRESSION: 1. No intracranial abnormalities are identified on head CT without contrast. Signer Name: Len Mitchell MD Signed: 08/14/2019 5:34 PM Workstation Name: [id number] Transcribed By: Dictated By: Len Mitchell MD Electronically Authenticated By: Len Mitchell MD Signed Date/Time: 08/14/191733 DD/ 29 TD/TT: - Medical Decision Making This patient presents with a headache most consistent with migraine. Differential diagnosis includes migraine versus tension type headache. No headache red flags. Neurologic exam without evidence of meningismus, focal neurologic findings.Based on the patient's history and physical there is very low clinical suspicion for significant intracranial pathology. The headache was NOT sudden onset, NOT maximal at onset, there are NO neurologic findings, the patient does NOT have a fever, the patient does NOT have any jaw claudication, the patient does NOT endorse a clotting disorder, patient DENIES any trauma or eye pain and the headache is NOT associated with dizziness or ataxia. Presentation not consistent with acute intracranial bleed to include SAH (lack of risk factors, headache history). Presentation not consistent with acute [employer] infection to include meningitis or brain abscess, Temporal arteritis unlikely, as is acute angle closure glaucoma given history and physical findings. Presentation not consistent with other acute, emergent causes of headache at this time. Plan to treat symptomatically with pain medication. No indication for imaging/LP at this time. Plan: pain medication, CT brain normal, serial reassessment Symptoms are 100% resolved she is pain-free and ready to go home. Patient is comfortable with the discharge plan and follow-up that was discussed. Critical care attestation.: If time is entered above; I have spent that time in minutes in the direct care of this critically ill patient, excluding procedure time. ED Disposition Clinical Impression: Cephalgia Disposition: DC-01 TO HOME OR SELFCARE Is pt being admited?: No Does the pt Need Aspirin: No Condition: Stable Instructions: Migraine Headache (ED), Tension Headache (ED), Acute Headache (ED) Prescriptions: Butalb/Acetaminophen/Caffeine [Fioricet 50-300-40 mg CAP] 1 cap PO Q8HR PRN #20 cap PRN Reason: headache Referrals: JEB MATUTE MD [Primary Care Provider] - 3-5 Days
[2019-08-14 20:51] VITALS: BP 118/75
== END 2019-08-14 19:20 | disposition home or self-care (01) ==
LOC: ED 14:20
DX: R51 Headache (principal); H53.149 Visual discomfort, unspecified; R05 Cough; R55 Syncope and collapse; I10 Essential (primary) hypertension; E11.9 Type 2 diabetes mellitus without complications; K21.9 Gastro-esophageal reflux disease without esophagitis; Z98.51 Tubal ligation status; Z98.890 Other specified postprocedural states; Z79.899 Other long term (current) drug therapy; Z88.2 Allergy status to sulfonamides; Z88.8 Allergy status to other drugs, medicaments and biological substances
CPT/HCPCS: 36415; 70450; 71046; 80053; 84484; 85025; 96374; 96375; 99284; J1200; J1885; J2765

== ENCOUNTER 2020-01-23 19:31 | Emergency (ER) | payer BC ==
[2020-01-23] MEDS ORDERED: HYDROmorphone 1 MG/1 ML INJ IV ONE (21:01)
[2020-01-23] MEDS ORDERED: KETOROLAC 30 MG/1 ML INJ IV ONE (21:01)
--- NOTE | 2020-01-23 21:02 | Emergency Department Report ---
ED General Adult HPI - General Chief complaint: Extremity Problem,Nontraumatic Stated complaint: RT ARM NUMBNESS PUI?: No Time Seen by Provider: 01/23/20 20:45 Source: patient, RN notes reviewed, old records reviewed Mode of arrival: Ambulatory Limitations: Physical Limitation - History of Present Illness Initial comments: The patient was evaluated in the emergency department for symptoms described in the history of present illness. He/she was evaluated in the context of the global COVID-19 pandemic, which necessitated consideration that the patient might be at risk for infection with the virus that causes COVID-19. Inst itutional protocols and algorithms that pertain to the evaluation of patients at risk for COVID-19 are in a state of rapid change based on information released by regulatory bodies including the CDC and federal and state organizations. These policies and algorithms were followed during the patient's care in the emergency department. Please note that these policies, procedures and recommendations changed on a rapid basis. During the entire history and physical examination, I am chaperoned/escorted by Joy Loader Karin Dawkins The patient is a 54-year-old female who is right-hand dominant with a history of diabetes, currently on oral medications, does not know her hemoglobin A1c, also has a history of IBS/diverticulosis, presenting to the ER with a complaint of traumatic right shoulder pain, and subsequent difficulty with moving her right shoulder. She reports being in her usual state of health yesterday, when she was walking at slow speed, and tapped her shoulder into a doorway. "I did not think anything of it." The patient reports not having pain immediately after the impact. However, at around 12:00 AM this morning, she developed sharp throbbing right-sided shoulder pain, then involves her right bicep, right tricep and right trapezius. She denies extremity weakness and numbness. She denies new onset bladder/bowel retention/incontinence. Denies saddle anesthesia. D enies new headache, midline neck pain, chest pain, abdominal pain, shortness of breath. She denies loss of range of motion in the right elbow, right wrist. However, she indicates she is not had shoulder pain like this in the past. She reports she can tolerate morphine and fentanyl. -: Sudden Location: right, upper extremity Radiation: other (Pain moves to the right trapezius, right bicep and right tricep) Severity scale (0 -10): 10 Quality: aching Consistency: constant Improves with: rest Worsens with: movement - Related Data Home Medications Medication Instructions Recorded Confirmed Last Taken Janumet XR 50-1,000 mg 50 mg PO DAILY 07/11/18 07/11/18 Unknown Metoprolol 50 mg PO DAILY 07/11/18 07/11/18 Unknown Omeprazole 40 mg PO DAILY 07/11/18 07/11/18 Unknown Previous Rx's Medication Instructions Recorded Last Taken Type amLODIPine 5 mg PO QDAY #30 tablet 06/26/15 Unknown Rx Albuterol Sulfate [Ventolin HFA] 2 puff IH Q4H PRN #1 pump 07/13/18 Unknown Rx Acetaminophen [Non-Aspirin Extra 500 mg PO Q6HR PRN #30 tablet 01/23/20 Unknown Rx Strength] Ibuprofen [Motrin] 600 mg PO Q8H PRN #30 tablet 01/23/20 Unknown Rx Allergies Allergy/AdvReac Type Severity Reaction Status Date / Time codeine Allergy Swelling Verified 07/11/18 07:54 iodine Allergy Swelling Verified 07/11/18 07:54 lisinopril Allergy Angioedema Verified 07/11/18 07:54 Sulfa (Sulfonamide Allergy Swelling Verified 07/11/18 07:54 Antibiotics) ED Review of Systems ROS: Stated complaint: RT ARM NUMBNESS Other details as noted in HPI Constitutional: denies: fever Eyes: denies: eye discharge Respiratory: denies: cough Cardiovascular: denies: chest pain Genitourinary: denies: dysuria Musculoskeletal: arthralgia, myalgia Neurological: denies: numbness, paresthesias, confusion, abnormal gait Psychiatric: anxiety ED Past Medical Hx - Past Medical History Previous Medical History?: Yes Hx Hypertension: Yes Hx Heart Attack/AMI: No Hx Congestive Heart Failure: No Hx Diabetes: Yes Hx Deep Vein Thrombosis: No Hx Pulmonary Embolism: No Hx GERD: Yes Hx Liver Disease: No Hx Renal Disease: No Hx Sickle Cell Disease: No Hx Arthritis: No Hx Seizures: No Hx Kidney Stones: No Hx Asthma: No Hx COPD: No Hx Tuberculosis: No Hx Dementia: No Hx HIV: No Additional medical history: Negative cardiac catheterization 2014. "ABNORMAL EKG". sleep apnea - Surgical History Past Surgical History?: Yes Hx Coronary Stent: No Hx Open Heart Surgery: No Hx Pacemaker: No Hx Internal Defibrillator: No Hx Cholecystectomy: No Hx Appendectomy: No Hx Breast Surgery: No Additional Surgical History: partial hysterectomy. nasal surgery. tubal ligation. carpul tunnel bilat. tumor left eardrum removed, lisbeth tuck - Social History Smoking Status: Never Smoker - Medications Home Medications: Home Medications Medication Instructions Recorded Confirmed Last Taken Type amLODIPine 5 mg PO QDAY #30 tablet 06/26/15 07/11/18 Unknown Rx Janumet XR 50-1,000 mg 50 mg PO DAILY 07/11/18 07/11/18 Unknown History Metoprolol 50 mg PO DAILY 07/11/18 07/11/18 Unknown History Omeprazole 40 mg PO DAILY 07/11/18 07/11/18 Unknown History Albuterol Sulfate [Ventolin HFA] 2 puff IH Q4H PRN #1 pump 07/13/18 Unknown Rx Acetaminophen [Non-Aspirin Extra 500 mg PO Q6HR PRN #30 tablet 01/23/20 Unknown Rx Strength] Ibuprofen [Motrin] 600 mg PO Q8H PRN #30 tablet 01/23/20 Unknown Rx ED Physical Exam - General Limitations: Physical Limitation General appearance: alert, anxious, obese - Head Head exam: Present: atraumatic, normocephalic - Eye Eye exam: Present: normal appearance, EOMI. Absent: nystagmus - ENT ENT exam: Present: normal exam, normal orophraynx, mucous membranes moist, normal external ear exam - Neck Neck exam: Present: normal inspection, tenderness (There is reproducible right trapezius tenderness), full ROM - Respiratory Respiratory exam: Present: normal lung sounds bilaterally. Absent: respiratory distress, wheezes, rales, rhonchi, stridor - Cardiovascular Cardiovascular Exam: Present: regular rate, normal rhythm, normal heart sounds. Absent: bradycardia, tachycardia, irregular rhythm, systolic murmur, diastolic murmur, rubs, gallop - GI/Abdominal GI/Abdominal exam: Present: soft. Absent: distended, tenderness, guarding, rebound, rigid, pulsatile mass - Extremities Exam Extremities exam: Present: normal inspection, full ROM (There is full range of motion in the right wrist, and right elbow. There is minimal bicep and tricep tenderness. There is no redness, warmth, pus or streaking over the right shoulder. The right shoulder is diffusely tender. The AC joint is nontender. The clavicle is nontender. Sensation is intact to light touch, pinch and proprioception in the bilateral upper extremities. Opposition/range of motion/right upper extremity finger range of motion is intact.), normal capillary refill, other (2+ pulses noted in the bilateral upper and lower extremities. There is no palpable cord. negative Homans sign. Muscular compartments are soft. The pelvis is stable.). Absent: pedal edema - Back Exam Back exam: Present: normal inspection, full ROM, muscle spasm, paraspinal tenderness. Absent: tenderness, CVA tenderness (R), CVA tenderness (L), vertebral tenderness - Neurological Exam Neurological exam: Present: alert, normal gait, other (No facial droop. Tongue midline. Extraocular movements intact bilaterally. Facial sensation intact to light touch in V1, V2, V3 distribution bilaterally. 5 and a 5 strength in 4 extremities. Sensation intact to light touch in 4 extremities.). Absent: motor sensory deficit - Psychiatric Psychiatric exam: Present: anxious - Skin Skin exam: Present: warm, dry, intact, normal color. Absent: rash ED Course Vital Signs 01/23/20 01/23/20 01/23/20 20:11 22:01 22:02 Temperature 98.3 F Pulse Rate 72 70 Respiratory 17 19 16 Rate Blood Pressure 153/80 138/73 Blood Pressure [Left] O2 Sat by Pulse 96 97 Oximetry 01/23/20 01/23/20 22:04 22:45 Temperature 98.2 F Pulse Rate 71 Respiratory 16 16 Rate Blood Pressure Blood Pressure 130/72 [Left] O2 Sat by Pulse 100 Oximetry - Reevaluation(s) Reevaluation #1: 01/23/20 21:08 Differential diagnosis, including but not limited to: Bursitis, capsulitis, fracture, dislocation, soft tissue injury Assessment and plan: 54-year-old female with reproducible diffuse right-sided shoulder pain, with limited range of motion secondary to pain, without redness, warmth, pus, streaking, or fever, subacute trauma, no limitation to range of motion in the right elbow and right wrist, with no neurovascular deficits. This is very unlikely to be a septic joint. We will check basic laboratory studies, x-ray the right shoulder, treat her pain aggressively, and reassess. In the event that the patient does not improve, or no obvious alternative explanation is elucidated, patient has provided written informed consent for arthrocentesis to exclude septic joint, but again, we think this is very unlikely at this point in time Reevaluation #2: 01/23/20 21:42 Range of motion is improved after subacromial bursa injection. Patient able to passively and actively abductor the shoulder to 90 degrees. She does not have complete range of motion, but her range of motion is much improved. She states her pain is improved. Reevaluation #3: 01/23/20 22:16 Final reassessment. Range of motion is much improved. The patient does not have complete range of motion of the shoulder, however, she can passively/anteriorly elevate the shoulder/extend the shoulder to approximately 90 degrees, she is able to AB duct to 75/80 degrees laterally. She is also able to internally and externally rotate the shoulder. This is most likely bursitis versus adhesive capsulitis versus shoulder impingement syndrome. This is very unlikely to be a septic joint. Her pain is much improved, and she states she feels ready for discharge. She can follow-up with an outpatient orthopedist or sports medicine physician. - Procedure Description Procedures done: Patient provided verbal consent for subacromial bursa injection. Using typical sterile technique, the right shoulder was cleaned with Betadine, and a 5 cc syringe was filled with 5 cc of 0.5% Marcaine. the postero -lateral acromion was identified, and a 26 g needle was used to inject a wheel, and then 5 cc of 0.5 % , marcaine was injected without complication or issue. the patient tolerated the procedural well without any complication ED Medical Decision Making - Lab Data Result diagrams: 01/23/20 Unknown 01/23/20 Unknown Vital Signs 01/23/20 20:11 Temperature 98.3 F Pulse Rate 72 Respiratory 17 Rate Blood Pressure 153/80 O2 Sat by Pulse 96 Oximetry Vital Signs 01/23/20 20:11 Temperature 98.3 F Pulse Rate 72 Respiratory 17 Rate Blood Pressure 153/80 O2 Sat by Pulse 96 Oximetry Lab Results 01/23/20 01/23/20 Range/Units Unknown Unknown WBC 12.8 H (4.5-11.0) K/mm3 RBC 4.00 (3.65-5.03) M/mm3 Hgb 11.9 (10.1-14.3) gm/dl Hct 35.1 (30.3-42.9) % MCV 88 (79-97) fl MCH 30 (28-32) pg MCHC 34 (30-34) % RDW 14.4 (13.2-15.2) % Plt Count 254 (140-440) K/mm3 Lymph % (Auto) 29.1 (13.4-35.0) % [place] % (Auto) 9.1 H (0.0-7.3) % Eos % (Auto) 1.0 (0.0-4.3) % Baso % (Auto) 0.3 (0.0-1.8) % Lymph # 3.7 (1.2-5.4) K/mm3 [place] # 1.2 H (0.0-0.8) K/mm3 Eos # 0.1 (0.0-0.4) K/mm3 Baso # 0.0 (0.0-0.1) K/mm3 Seg Neutrophils % 60.5 (40.0-70.0) % Seg Neutrophils # 7.7 (1.8-7.7) K/mm3 PT 13.4 (12.2-14.9) Sec. INR 1.01 (0.87-1.13) APTT 26.8 (24.2-36.6) Sec. Vital Signs 01/23/20 20:11 Temperature 98.3 F Pulse Rate 72 Respiratory 17 Rate Blood Pressure 153/80 O2 Sat by Pulse 96 Oximetry Lab Results 01/23/20 01/23/20 01/23/20 Range/Units Unknown Unknown Unknown WBC 12.8 H (4.5-11.0) K/mm3 RBC 4.00 (3.65-5.03) M/mm3 Hgb 11.9 (10.1-14.3) gm/dl Hct 35.1 (30.3-42.9) % MCV 88 (79-97) fl MCH 30 (28-32) pg MCHC 34 (30-34) % RDW 14.4 (13.2-15.2) % Plt Count 254 (140-440) K/mm3 Lymph % (Auto) 29.1 (13.4-35.0) % [place] % (Auto) 9.1 H (0.0-7.3) % Eos % (Auto) 1.0 (0.0-4.3) % Baso % (Auto) 0.3 (0.0-1.8) % Lymph # 3.7 (1.2-5.4) K/mm3 [place] # 1.2 H (0.0-0.8) K/mm3 Eos # 0.1 (0.0-0.4) K/mm3 Baso # 0.0 (0.0-0.1) K/mm3 Seg Neutrophils % 60.5 (40.0-70.0) % Seg Neutrophils # 7.7 (1.8-7.7) K/mm3 PT 13.4 (12.2-14.9) Sec. INR 1.01 (0.87-1.13) APTT 26.8 (24.2-36.6) Sec. Sodium 139 (137-145) mmol/L Potassium 3.6 (3.6-5.0) mmol/L Chloride 103.0 (98-107) mmol/L Carbon Dioxide 20 L (22-30) mmol/L Anion Gap 20 mmol/L BUN 11 (7-17) mg/dL Creatinine 0.8 (0.6-1.2) mg/dL Estimated GFR > 60 ml/min BUN/Creatinine Ratio 14 % Glucose 178 H (65-100) mg/dL Calcium 9.0 (8.4-10.2) mg/dL Magnesium 1.80 (1.7-2.3) mg/dL Total Creatine Kinase 203 H (30-135) units/L - Radiology Data Radiology results: pending, image reviewed interpreted by me: X-ray of the right shoulder, reviewed by myself, negative for acute findings. Critical care attestation.: If time is entered above; I have spent that time in minutes in the direct care of this critically ill patient, excluding procedure time. ED Disposition Clinical Impression: Right shoulder pain Qualifiers: Chronicity: acute Qualified Code(s): M25.511 - Pain in right shoulder Disposition: TO HOME OR SELFCARE Is pt being admited?: No Does the pt Need Aspirin: No Condition: Stable Instructions: Rotator Cuff Injury (ED), Shoulder Bursitis (ED) Additional Instructions: Please follow-up with an outpatient orthopedist or sports medicine physician within the next 3 to 5 days. Alternate ice packs, heat packs, and perform range of motion exercises as we have discussed, alternating the pain medications that were prescribed. Continue outpatient medications otherwise. Patient will likely need to initiate physical therapy for right shoulder pain. Please return to the emergency room right away with new pain, worsened pain, migration of pain, projectile vomiting, change in mental status, confusion, inability to tolerate liquid feeds, new, worsened or different symptoms not present on the initial emergency room evaluation, and please return to the emergency room right away with any significant worsening pain, or symptoms not present on initial ER presentation. Avoid heavy lifting, participate in exercises as tolerated Prescriptions: Ibuprofen [Motrin] 600 mg PO Q8H PRN #30 tablet PRN Reason: Pain Acetaminophen [Non-Aspirin Extra Strength] 500 mg PO Q6HR PRN #30 tablet PRN Reason: Pain , Severe (7-10) Referrals: BROOKE TREJO MD [Staff Physician] - 3-5 Days [facility] [Provider Group] - 3-5 Days Forms: Work/School Release Form(ED)
[2020-01-23] MEDS ORDERED: BUPIVACAINE-EPINEPHRINE/PF 0.25%-1:200,000 (10 ML) VIAL INFILTRATI ONE (21:16)
[2020-01-23] MEDS ORDERED: BUPIVACAINE/PF (0.5%) 5 MG/1 ML 10 ML VIAL INFILTRATI ONE ×2 (21:26→21:34)
[2020-01-23 21:27] LABS: Basophils % (Auto) 0.3 % (0.0-1.8); Eosinophils # (Auto) 0.1 K/mm3 (0.0-0.4); Hematocrit 35.1 % (30.3-42.9); Hemoglobin 11.9 gm/dl (10.1-14.3); Lymphocytes # (Auto) 3.7 K/mm3 (1.2-5.4); Lymphocytes % (Auto) 29.1 % (13.4-35.0); Mean Corpuscular HGB Conc 34 % (30-34); Mean Corpuscular Volume 88 fl (79-97); Monocytes # (Auto) 1.2 K/mm3 (0.0-0.8); Monocytes % (Auto) 9.1 % (0.0-7.3); Platelet Count 254 K/mm3 (140-440); Red Cell Distribution Width 14.4 % (13.2-15.2)
[2020-01-23 21:35] LABS: INR 1.01 (0.87-1.13)
[2020-01-23 21:36] LABS: Partial Thromboplastin Time 26.8 Sec. (24.2-36.6)
--- NOTE | 2020-01-23 21:41 | XRay Report ---
RIGHT SHOULDER 3 VIEW(S) INDICATION / CLINICAL INFORMATION: right shoulder pain COMPARISON: None available. FINDINGS: BONES / JOINT(S): No acute fracture or subluxation. Mild degenerative osteoarthrosis. SOFT TISSUES: No significant abnormality. ADDITIONAL FINDINGS: None. Signer Name: García Loo MD Signed: 01/23/2020 9:37 PM Workstation Name: [id number]
[2020-01-23 21:43] LABS: BUN/Creatinine Ratio 14; Blood Urea Nitrogen 11 mg/dL (7-17); Hemolysis Index 1
[2020-01-23 21:57] LABS: Erythrocyte Sedimentation Rate 15 mm/Hr (0-20)
[2020-01-23 22:47] VITALS: BP 130/72
== END 2020-01-23 22:48 | disposition home or self-care (01) ==
LOC: ED 19:31
DX: M25.511 Pain in right shoulder (principal); R20.0 Anesthesia of skin; I10 Essential (primary) hypertension; E11.9 Type 2 diabetes mellitus without complications; K21.9 Gastro-esophageal reflux disease without esophagitis; Z98.51 Tubal ligation status; Z98.890 Other specified postprocedural states; Z79.1 Long term (current) use of non-steroidal anti-inflammatories (NSAID); Z79.899 Other long term (current) drug therapy; Z88.2 Allergy status to sulfonamides; Z88.8 Allergy status to other drugs, medicaments and biological substances
CPT/HCPCS: 20610; 36415; 73030; 80048; 82550; 83735; 85025; 85610; 85652; 85730; 86140; 96374; 96375; 99284; J1170; J1885

== ENCOUNTER 2020-01-26 08:16 | Outpatient (CLI) | payer BC ==
[2020-01-26] MEDS ORDERED: REGADENOSON 0.4 MG/5 ML INJ IV ONE ×2 (09:45→10:00)
--- NOTE | 2020-01-26 13:37 | Treadmill Report ---
PHARMACOLOGICAL MYOCARDIAL PERFUSION IMAGING REPORT This is being performed on a 54-year-old female with complaints of atypical chest pain. Baseline EKG showed sinus rhythm, within normal limits. The patient received IV regadenoson 0.4 mg by injection and EKG was monitored. The patient did not have any chest pain. No significant ST-T changes were noted to suggest ischemia. Minor nonspecific ST-T changes were noted. Blood pressure has been stable. Myocardial perfusion imaging was performed using technetium-99m sestamibi at rest and also post-vasodilation with IV regadenoson. Myocardial perfusion imaging during rest and post-vasodilation were found to be normal with no significant reversible defects. Transient ischemic dilation ratio was found to be 1.07. Normal left ventricular diastolic and systolic volumes noted and gated post-stress images showed ejection fraction calculated to be 73% with no wall motion abnormalities. FINAL IMPRESSION: 1. The patient tolerated the IV regadenoson well. 2. No ischemic changes on the EKG. 3. No chest pain. 4. Myocardial perfusion imaging was normal with no significant reversible defects. 5. Normal left ventricular systolic function noted with calculated ejection fraction of 73% with normal left ventricular end-diastolic and end-systolic volumes. JOB# [id number] LUCINA/PIETRO
== END 2020-01-26 08:17 | disposition home or self-care (01) ==
LOC: CARD 08:16
PROVIDERS: ATTEND Internal Medicine Cardiovascular Disease
DX: R94.31 Abnormal electrocardiogram [ECG] [EKG] (principal); R07.89 Other chest pain; E66.09 Other obesity due to excess calories; I10 Essential (primary) hypertension
CPT/HCPCS: 78452; 93017; A9502; J2785

== ENCOUNTER 2020-06-30 08:01 | Outpatient (CLI) | payer BC ==
--- NOTE | 2020-06-30 10:40 | Magnetic Resonance Report ---
MRI RIGHT SHOULDER WITHOUT CONTRAST INDICATION / CLINICAL INFORMATION: IMPINGEMENT SYNDROME OF RIGHT SHOULDER,PAIN IN RIGHT ARM. TECHNIQUE: Multiplanar, multisequence MR images were obtained. No contrast used. COMPARISON: Radiograph the right shoulder dated 01/23/2020. FINDINGS: SUPRASPINATUS: Moderate/severe tendinosis distally and involving the critical zone. There is articula r sided fraying involving the posterior fibers with no discrete tear. INFRASPINATUS: Moderate/severe tendinosis distally involving the critical zone. No discrete tear. SUBSCAPULARIS: Moderate/severe tendinosis distally without discrete tear. BICEPS TENDON, LONG HEAD: No significant abnormality. GLENOID LABRUM: No significant abnormality. ARTICULAR CARTILAGE: No significant abnormality. JOINT SPACE AND CAPSULE: No significant abnormality. ACROMION and A.C. JOINT: Type II acromion with mild AC joint degenerative changes, mild bilateral cor onal downsloping with minimal encroachment on supraspinatus tendon. SUBACROMIAL/SUBDELTOID SPACE: Moderate bursitis. BONES: No significant bone marrow edema. No fracture. No osseous lesion. SOFT TISSUES: No significant abnormality. ADDITIONAL FINDINGS: None. IMPRESSION: 1. Moderate/severe rotator cuff tendinosis without full-thickness tear. 2. Type II acromion with mild AC joint degenerative changes and mild encroachment on the supraspinous tendon. 3. Moderate subacromial/subdeltoid bursitis. 4. No labral tear. Report dictated by: Nathan Xavier MD Report dictated on: 06/30/2020 9:05 AM I have reviewed the images, agree with this report, and edited this report as needed. Signer Name: Phani Ramey MD Signed: 06/30/2020 10:36 AM Workstation Name: [id number]
== END 2020-06-30 08:02 | disposition home or self-care (01) ==
LOC: MRI 08:01
PROVIDERS: ATTEND Orthopaedic Surgery
DX: M19.011 Primary osteoarthritis, right shoulder (principal); M77.8 Other enthesopathies, not elsewhere classified; M75.51 Bursitis of right shoulder; M75.41 Impingement syndrome of right shoulder